=== PATIENT | male | born 1940 | race Caucasian/White ===

== ENCOUNTER 2023-03-14 12:40 | Inpatient (IN) | payer MEDICARE, BC ==
[2023-03-14] MEDS ORDERED: SODIUM CHLORIDE 0.9% 1,000 ML IV STA ×2 (12:52→14:08)
--- NOTE | 2023-03-14 12:53 | ED ---
Recheck HPI - General Stated Complaint: sepsis Time Seen by Provider: 03/14/23 12:45 Source: RN notes reviewed, old records reviewed Mode of arrival: EMS Limitations: no limitations - History of Present Illness Initial Comments: This is a 83-year-old male to the ER for evaluation presented for an weakness and exception in transfer for pneumonia and sepsis with low blood pressure. On arrival to this emergency room patient still feels very weak lightheaded with cough and shortness of breath although he states his fever feels improved. Sensation states he was very sick this morning when he woke up and was taken to the hospital. No recent travel history no known significant sick contacts. MD Complaint: abnormal lab (Low blood pressure with pneumonia), needs IV antibiotics -: unknown Returns Today for: Called Because of Abnormal Lab/Test, needs IV antibiotics, persistent/worsening pain related to initial visit Symptoms Since Prior Visit: fever Context: called for abnormal lab result (Low blood pressure) Associated Symptoms: fever, chills, malaise, nausea Treatments Prior to Arrival: other (0) - Related Data Home Medications Medication Instructions Recorded Confirmed Apixaban [Eliquis] 2.5 mg PO BID 03/14/23 03/14/23 Aspirin EC [Ecotrin Low Dose] 81 mg PO DAILY 03/14/23 03/14/23 Atorvastatin [Lipitor] 40 mg PO DAILY 03/14/23 03/14/23 Cetirizine HCl [Zyrtec] 10 mg PO DAILY 03/14/23 03/14/23 DULoxetine HCL [Cymbalta] 30 mg PO DAILY 03/14/23 03/14/23 Magnesium Oxide [Mag-Ox] 400 mg PO DAILY 03/14/23 03/14/23 Melatonin 5 mg PO HS 03/14/23 03/14/23 Multivitamins, Thera [Multivitamin 1 tab PO DAILY 03/14/23 03/14/23 (formulary)] Pantoprazole [Protonix] 40 mg PO DAILY 03/14/23 03/14/23 polyethylene glycoL 3350 [Miralax] 17 gm PO DAILY 03/14/23 03/14/23 rOPINIRole HCL [Requip] 0.25 mg PO BID 03/14/23 03/14/23 Previous Rx's Medication Instructions Recorded Acetaminophen Tab [Tylenol] 650 mg PO Q6HR PRN tab 03/18/23 Metoprolol Tartrate [Lopressor] 12.5 mg PO DAILY #30 tab 03/18/23 Allergies Allergy/AdvReac Type Severity Reaction Status Date / Time No Known Allergies Allergy Verified 03/14/23 15:22 Review of Systems ROS Statement: Those systems with pertinent positive or pertinent negative responses have been documented in the HPI. ROS Other: All systems not noted in ROS Statement are negative. General Exam General appearance: alert, in no apparent distress, anxious Head exam: Present: atraumatic, normocephalic, normal inspection Eye exam: Present: normal appearance, PERRL, EOMI. Absent: scleral icterus, conjunctival injection, periorbital swelling ENT exam: Present: normal exam, mucous membranes moist Neck exam: Present: normal inspection. Absent: tenderness, meningismus, lymphadenopathy Respiratory exam: Present: respiratory distress, wheezes, accessory muscle use, decreased breath sounds, prolonged expiratory. Absent: rales, rhonchi, stridor Cardiovascular Exam: Present: regular rate, normal rhythm, tachycardia, normal heart sounds. Absent: systolic murmur, diastolic murmur, rubs, gallop, clicks GI/Abdominal exam: Present: soft, normal bowel sounds. Absent: distended, tenderness, guarding, rebound, rigid Extremities exam: Present: normal inspection, full ROM, normal capillary refill. Absent: tenderness, pedal edema, joint swelling, calf tenderness Back exam: Present: normal inspection Neurological exam: Present: alert, oriented X3, CN II-XII intact Psychiatric exam: Present: normal affect, normal mood Skin exam: Present: warm, dry, intact, normal color. Absent: rash Course Vital Signs 03/14/23 03/14/23 03/14/23 12:42 13:05 13:49 Temperature 98.3 F Pulse Rate 78 73 74 Respiratory 20 22 Rate Blood Pressure 87/41 97/45 O2 Sat by Pulse 93 L 93 L Oximetry 03/14/23 03/14/23 03/14/23 13:59 14:00 16:27 Temperature Pulse Rate 74 75 73 Respiratory 20 Rate Blood Pressure 96/60 O2 Sat by Pulse 95 Oximetry 03/14/23 03/14/23 03/14/23 16:38 17:00 18:35 Temperature 98.8 F Pulse Rate 73 74 74 Respiratory 20 20 Rate Blood Pressure 130/70 117/62 O2 Sat by Pulse 97 97 Oximetry 03/14/23 03/14/23 03/14/23 19:00 20:15 20:24 Temperature Pulse Rate 74 71 77 Respiratory 21 Rate Blood Pressure 119/58 O2 Sat by Pulse 95 Oximetry 03/14/23 03/14/23 03/15/23 21:00 23:00 00:00 Temperature Pulse Rate 80 64 68 Respiratory 20 22 20 Rate Blood Pressure 111/62 91/49 98/53 O2 Sat by Pulse 95 94 L 94 L Oximetry 03/15/23 03/15/23 03/15/23 01:00 02:00 03:00 Temperature Pulse Rate 63 65 70 Respiratory 21 20 21 Rate Blood Pressure 100/58 101/55 105/57 O2 Sat by Pulse 98 93 L 91 L Oximetry 03/15/23 03/15/23 03/15/23 04:00 05:00 06:00 Temperature Pulse Rate 70 70 64 Respiratory 18 13 12 Rate Blood Pressure 97/48 104/57 104/75 O2 Sat by Pulse 87 L 95 98 Oximetry 03/15/23 03/15/23 07:00 07:46 Temperature 98.2 F Pulse Rate 68 65 Respiratory 22 Rate Blood Pressure 117/63 O2 Sat by Pulse 97 Oximetry - Reevaluation(s) Reevaluation #1: 03/14/23 14:59 Medical record is reviewed Transfer records reviewed Reevaluation #2: 03/14/23 14:59 Patient states she still feels very weak here in the ER shortness of breath is improving Reevaluation #3: 03/14/23 14:59 Patient informed results questions answered Reevaluation #4: 03/14/23 13:35 Was pt. sent in by a medical professional or institution? @ -no Did you speak to anyone other than the patient for history? @ -no Did you review nursing and triage notes? @ -agree Were old charts reviewed? @ -yes Differential Diagnosis? @ -prior EKG interpreted by me (3pts min.)? @ -yes X-rays interpreted by me (1pt min.)? @ -yes CT interpreted by me (1pt min.)? @ -yes U/S interpreted by me (1pt. min.)? @ -no What testing was considered but not performed? (CT, X-rays, U/S, labs)? Why? @ -no What meds were considered but not given? Why? @ -no Did you discuss the management of the patient with other professionals? @ -no Did you reconcile home meds? @ -no Was smoking cessation discussed for >3mins.? @ -no Was critical care preformed (if so, how long)? @ -no Were there social determinants of health that impacted care today? How? (Homelessness, low income, unemployed, alcoholism, drug addiction, transportation, low edu. Level, literacy, decrease access to med. care, fci, rehab)? @ -no Was there de-escalation of care discussed even if they declined? (Discuss DNR or withdrawal of care, Hospice)? @ -no What co-morbidities impacted this encounter? (DM, HTN, Smoking, COPD, CAD, Cancer, CVA, Hep., AIDS, mental health diagnosis, sleep apnea, morbid obesity)? @ -none Was patient admitted / discharged? @ -83 male to the emergency department for evaluation as a transfer patient. Patient is accepted in transfer from outside facility for pneumonia, soft blood pressures originally which are improving with hydration, patient is continued on antibiotics and will be admitted for continued supportive care Undiagnosed new problem with uncertain prognosis? @ -no Drug Therapy requiring intensive monitoring for toxicity (Heparin, Nitro, In sulin, Cardizem)? @ -no Were any procedures done? @ -no Diagnosis/symptom? @ -CHF, pneumonia, hypoxia Acute, or Chronic, or Acute on Chronic? @ -acute Uncomplicated (without systemic symptoms) or Complicated (systemic symptoms)? @ -complicated Side effects of treatment? @ -no Exacerbation, Progression, or Severe Exacerbation] @ -no Poses a threat to life or bodily function? @ -yes with distress respiratory and hypoxia Reevaluation #5: 03/14/23 13:35 Differential Fever: Pneumonia, viral URI, endocarditis, myocarditis, pericarditis, otitis, sinusitis, peritonsillar Abscess, retropharyngeal Abscess, epiglottitis, peritonitis, appendicitis, Sylwia cystitis, diverticulitis, hepatitis, colitis, UTI, PID, TOA, pyelonephritis, prostatitis, epididymitis, meningitis, encephalitis, pulmonary embolism, CVA, thyroid storm, pancreatitis, adrenal cr fela, cavernous sinus thrombosis, this is not meant to be an all-inclusive list. Differential Dyspnea: Coronary syndrome, arrhythmia, tamponade, asthma, COPD, pulmonary embolism, pneumonia, pneumothorax, pulmonary effusion, anaphylaxis, diabetic ketoacidosis, flailed chest, pulmonary contusion, diaphragmatic rupture, anemia, neuromuscular, this is not meant to be an all-inclusive list. - Consultations Consultation #1: Spoke with [facility] who agrees to admit the patient Procedures - Sepsis Sepsis Focused Exam #1 Time Sepsis Criteria Met: 13:00 Sepsis Focused Exam Date: 03/14/23 Sepsis Focused Exam Time: 14:58 Sepsis Focused Exam Complete: Yes Vital Signs & RN Notes Reviewed: Yes Capillary Refill: < 2 Seconds: Fingers, Toes Peripheral Pulses: Normal: Radial (R), Radial (L), Posterior Tibialis (R), Posterior Tibialis (L), Dorsalis Pedis (R), Dorsalis Pedis (L) Skin Color: Normal for Patient Respiratory Exam: respiratory distress, rhonchi Cardiovascular Exam: regular rate Medical Decision Making - Medical Decision Making 83 male to the emergency department for evaluation as a transfer patient. Patient is accepted in transfer from outside facility for pneumonia, soft blood pressures originally which are improving with hydration, patient is continued on antibiotics and will be admitted for continued supportive care - Lab Data Result diagrams: 03/17/23 07:19 03/18/23 07:40 Lab Results 03/14/23 03/14/23 03/14/23 Range/Units 12:45 12:45 12:45 WBC 20.8 H (3.8-10.6) k/uL RBC 4.35 (4.30-5.90) m/uL Hgb 13.3 (13.0-17.5) gm/dL Hct 40.9 (39.0-53.0) % MCV 94.0 (80.0-100.0) fL MCH 30.5 (25.0-35.0) pg MCHC 32.4 (31.0-37.0) g/dL RDW 14.3 (11.5-15.5) % Plt Count 145 L (150-450) k/uL MPV 9.4 Neutrophils % 95 % Lymphocytes % 3 % Monocytes % 2 % Eosinophils % 0 % Basophils % 0 % Neutrophils # 19.7 H (1.3-7.7) k/uL Lymphocytes # 0.6 L (1.0-4.8) k/uL Monocytes # 0.4 (0-1.0) k/uL Eosinophils # 0.1 (0-0.7) k/uL Basophils # 0.0 (0-0.2) k/uL PT 11.0 (9.0-12.0) sec INR 1.0 (<1.2) APTT 25.2 (22.0-30.0) sec D-Dimer 1.05 H (<0.60) mg/L FEU Sodium 140 (137-145) mmol/L Potassium 3.5 (3.5-5.1) mmol/L Chloride 105 (98-107) mmol/L Carbon Dioxide 27 (22-30) mmol/L Anion Gap 8 mmol/L BUN 28 H (9-20) mg/dL Creatinine 1.60 H (0.66-1.25) mg/dL Est GFR (CKD-EPI)AfAm 45 (>60 ml/min/1.73 sqM) Est GFR (CKD-EPI)NonAf 39 (>60 ml/min/1.73 sqM) Glucose 103 H (74-99) mg/dL Plasma Lactic Acid Claudio (0.7-2.0) mmol/L Calcium 7.5 L (8.4-10.2) mg/dL Phosphorus 3.0 (2.5-4.5) mg/dL Magnesium 1.8 (1.6-2.3) mg/dL Total Bilirubin 1.6 H (0.2-1.3) mg/dL AST 32 (17-59) U/L ALT 27 (4-49) U/L Alkaline Phosphatase 118 (38-126) U/L Troponin I (0.000-0.034) ng/mL NT-Pro-B Natriuret Pep pg/mL Total Protein 5.5 L (6.3-8.2) g/dL Albumin 2.9 L (3.5-5.0) g/dL 03/14/23 03/14/23 03/14/23 Range/Units 12:45 12:45 12:45 WBC (3.8-10.6) k/uL RBC (4.30-5.90) m/uL Hgb (13.0-17.5) gm/dL Hct (39.0-53.0) % MCV (80.0-100.0) fL MCH (25.0-35.0) pg MCHC (31.0-37.0) g/dL RDW (11.5-15.5) % Plt Count (150-450) k/uL MPV Neutrophils % % Lymphocytes % % Monocytes % % Eosinophils % % Basophils % % Neutrophils # (1.3-7.7) k/uL Lymphocytes # (1.0-4.8) k/uL Monocytes # (0-1.0) k/uL Eosinophils # (0-0.7) k/uL Basophils # (0-0.2) k/uL PT (9.0-12.0) sec INR (<1.2) APTT (22.0-30.0) sec D-Dimer (<0.60) mg/L FEU Sodium (137-145) mmol/L Potassium (3.5-5.1) mmol/L Chloride (98-107) mmol/L Carbon Dioxide (22-30) mmol/L Anion Gap mmol/L BUN (9-20) mg/dL Creatinine (0.66-1.25) mg/dL Est GFR (CKD-EPI)AfAm (>60 ml/min/1.73 sqM) Est GFR (CKD-EPI)NonAf (>60 ml/min/1.73 sqM) Glucose (74-99) mg/dL Plasma Lactic Acid Claudio 1.5 (0.7-2.0) mmol/L Calcium (8.4-10.2) mg/dL Phosphorus (2.5-4.5) mg/dL Magnesium (1.6-2.3) mg/dL Total Bilirubin (0.2-1.3) mg/dL AST (17-59) U/L ALT (4-49) U/L Alkaline Phosphatase (38-126) U/L Troponin I 0.992 H* (0.000-0.034) ng/mL NT-Pro-B Natriuret Pep 1750 pg/mL Total Protein (6.3-8.2) g/dL Albumin (3.5-5.0) g/dL - EKG Data -: EKG Interpreted by Me (EKG is sinus 70 7 PM 175 QRS 16 QTc 470) - Radiology Data Radiology results: report reviewed (Chest x-ray showing mild developing CHF with pneumonia, CT is showing the same no PE), image reviewed Critical Care Time Critical Care Time: Yes Total Critical Care Time: 31 Disposition Clinical Impression: Dehydration, Sepsis, Weakness, Fever, Pneumonia, Hypoxia, Elevated troponin Disposition: ADMITTED IP TO THIS HOSP Condition: Fair Is patient prescribed a controlled substance at d/c from ED?: No Time of Disposition: 15:00
[2023-03-14 13:12] LABS: Basophils % (A) 0 %; Eosinophils # (A) 0.1 k/uL (0-0.7); Eosinophils % (A) 0 %; HCT 40.9 % (39.0-53.0); HGB 13.3 gm/dL (13.0-17.5); Lymphocytes # (A) 0.6 k/uL (1.0-4.8); Lymphocytes % (A) 3 %; MCH 30.5 pg (25.0-35.0); MCHC 32.4 g/dL (31.0-37.0); Mean Platelet Volume 9.4; Monocytes # (A) 0.4 k/uL (0-1.0); Monocytes % (A) 2 %; Neutrophils # (A) 19.7 k/uL (1.3-7.7); Neutrophils % (A) 95 %; Platelet Count 145 k/uL (150-450); RBC 4.35 m/uL (4.30-5.90); RDW 14.3 % (11.5-15.5); WBC 20.8 k/uL (3.8-10.6)
[2023-03-14 13:24] LABS: Partial Thromboplastin Time 25.2 sec (22.0-30.0)
[2023-03-14] MEDS ORDERED: IPRATROPIUM-ALBUTEROL 3 ML NEB INHALATION STA (13:29)
[2023-03-14 13:32] LABS: ALT 27 U/L (4-49); AST 32 U/L (17-59); African American GFR (CKD) 45 (>60 ml/min/1.73 sqM); Albumin 2.9 g/dL (3.5-5.0); Alkaline Phosphatase 118 U/L (38-126); Anion Gap 8 mmol/L; Blood Urea Nitrogen 28 mg/dL (9-20); Calcium 7.5 mg/dL (8.4-10.2); Carbon Dioxide 27 mmol/L (22-30); Chloride 105 mmol/L (98-107); Glucose 103 mg/dL (74-99); Magnesium 1.8 mg/dL (1.6-2.3); Non-African American GFR(CKD) 39 (>60 ml/min/1.73 sqM); Potassium 3.5 mmol/L (3.5-5.1); Sodium 140 mmol/L (137-145); Total Bilirubin 1.6 mg/dL (0.2-1.3); Total Protein 5.5 g/dL (6.3-8.2)
--- NOTE | 2023-03-14 14:00 | XR ---
EXAMINATION TYPE: XR chest 1V portable DATE OF EXAM: 03/14/2023 Comparison: None Clinical History: 83-year-old male with CHF Findings: Heart upper limits of normal in size. Median sternotomy wires and post-CABG clips. Low lung lungs and crowded vascular markings. Interstitial prominence. Patchy left basilar opacity, possible smaller le jason. Impression: 1. Borderline cardiomegaly. Hypoventilatory changes. Interstitial prominence consistent with mild pul monary vascular congestion. 2. There may be a small left effusion with adjacent atelectasis and/or consolidation.
[2023-03-14] MEDS ORDERED: HEPARIN SODIUM 1,000 UN/ML (10ML VL) IV ONE (14:08)
[2023-03-14] MEDS ORDERED: HEPARIN SODIUM 1,000 UN/ML (10ML VL) IV PRN (14:08)
[2023-03-14] MEDS ORDERED: HEPARIN SOD,PORK IN 0.45% NACL 25,000 UNIT in 0.45% NACL 1 250ML.BAG IV SCH (14:15)
[2023-03-14] MEDS ORDERED: ACETAMINOPHEN TAB 325 MG TAB PO PRN (14:51)
[2023-03-14] MEDS ORDERED: NALOXONE 0.4 MG/ML 1 ML VIAL IV PRN (14:51)
[2023-03-14] MEDS ORDERED: IBUPROFEN 400 MG TAB PO PRN (14:51)
[2023-03-14] MEDS ORDERED: ONDANSETRON 4 MG/2 ML VIAL IVP PRN (14:51)
[2023-03-14] MEDS: SODIUM CHLORIDE 0.9% 1,000 ML IV SCH (15:54)
--- NOTE | 2023-03-14 16:05 | CT ---
EXAMINATION TYPE: CT angio chest DATE OF EXAM: 03/14/2023 COMPARISON: Radiograph same day HISTORY: 83 year-old male shortness of breath, ELEVATED D-DIMER TECHNIQUE: Contiguous axial scanning of the chest performed with IV Contrast, patient injected with 8 0 mL of Isovue 370. Coronal/sagittal MIP reconstructions performed. CT DLP: 528.4 mGycm Automated exposure control for dose reduction was used. FINDINGS: Heart is mildly enlarged without pericardial effusion. Three-vessel coronary artery calcifications ar e present in remarkable for coronary artery disease. Dilatation of right-sided heart. Median sternotomy wires are present. Ectatic ascending aorta 3.9 cm. Mild atherosclerotic arch calcifications. Conventional arch was a bra nching anatomy. Borderline to mildly enlarged caliber to the main right and left pulmonary arteries up to 2.9 cm each . Satisfactory opacification of the pulmonary arterial system. There is some limitation due to breath ing motion artifact especially involving segmental and more distal arterial branches on the right. Al lowing for this limitation, no definite pulmonary embolus is seen. No thoracic lymphadenopathy by CT size criteria. Extensive dependent atelectasis. Extensive breathing motion artifact. Calcified granuloma medial left base. Otherwise, no nirmala consolidation or pleural effusion. Visualized upper abdomen shows cholecystectomy clips. Atrophic pancreas. Bones: Osseous destructive process. IMPRESSION: 1. EXTENSIVE BREATHING MOTION ARTIFACT ESPECIALLY ON THE RIGHT LIMITING ASSESSMENT FOR PULMONARY INLE T. NO OBVIOUS PULMONARY EMBOLUS IS SEEN. MANY OF THE SEGMENTAL AND MORE DISTAL FRACTURES ON THE RIGHT ARE NONDIAGNOSTIC AND EMBOLI IN THESE LOCATIONS CANNOT BE EXCLUDED ON THE BASIS OF THIS EXAM. 2. EXTENSIVE POSTERIOR OPACITIES AND GROUNDGLASS. SUSPECT EXTENSIVE DEPENDENT AND GENERALIZED ATELECT ASIS. OTHERWISE, NO PLEURAL EFFUSION OR DEFINITE ACUTE PROCESS. 3. Mild cardiomegaly, CAD, and pulmonary arterial hypertension. Correlate for underlying mild CHF.
[2023-03-14] MEDS: IPRATROPIUM-ALBUTEROL 3 ML NEB INHALATION SCH ×3 (16:27→20:14)
[2023-03-14] MEDS ORDERED: PIPERACILLIN-TAZOBACTAM 3.375 GM in SODIUM CHLORIDE 0.9% 100 ML IVPB ONE (18:00)
[2023-03-14] MEDS ORDERED: IPRATROPIUM-ALBUTEROL 3 ML NEB INHALATION PRN (19:35)
[2023-03-15] MEDS ORDERED: PIPERACILLIN-TAZOBACTAM 3.375 GM in SODIUM CHLORIDE 0.9% 100 ML IVPB SCH ×2
[2023-03-15] MEDS: PIPERACILLIN-TAZOBACTAM 3.375 GM in SODIUM CHLORIDE 0.9% 100 ML IVPB SCH ×4 (00:40→23:59)
--- NOTE | 2023-03-15 03:16 | P.CNPUL ---
History of Present Illness Consult date: 03/15/23 Requesting physician: Shalonda Correia Reason for consult: pneumonia Chief complaint: Shortness of breath, nonproductive cough, fever History of present illness: I am seeing this patient in consultation today 03/15/2023 after he was transferred from [facility] yesterday for suspected sepsis. Patient is an 83 -year-old white male with past medical history significant for coronary artery disease status post CABG with subsequent stenting, hyperlipidemia, hypertension, AAA, atrial fibrillation, CVA with left-sided hemiparesis, esophageal strictures, and dysphagia. Patient also had a recent prolonged stay at [facility] for bowel obstruction, but did not require surgical intervention. Patient reports generalized weakness, fever, difficulties urinating including frequency and urgency that started on Wednesday. He did have a fall 1 week ago. UA at outside facility was concerning for UTI. Reportedly had a T-max of 102F. There was also a component of acute kidney injury. No re ported gastrointestinal complaints. He also is reporting some shortness of breath and occasional nonproductive cough. There are concerns about possible aspiration. Denies history of COPD or asthma. Denies sick contacts. Negative for influenza, RSV, COVID-19. Patient is currently sitting up in bed, on 2 L/m nasal cannula, in no acute distress. A follow-up chest x-ray at our facility shows borderline cardiomegaly, and interstitial prominence consistent with mild pulmonary vascular congestion. There was a possible small left pleural effusion with adjacent atelectasis and/or consolidation. A follow-up chest CTA was negative for any large central pulmonary embolism. It did show extensive bi lateral posterior opacities thought to be atelectasis without pleural effusion or obvious focal consolidation. CBC on arrival shows leukocytosis with a WBC count of 21, hemoglobin 13.3, hematocrit 41, platelets 145. BMP shows a sodium 140, potassium 3.5, chloride 105, serum bicarb 27, BUN 28, creatinine 1.6, glucose 103. Troponins are elevated at 0.99, 1.3, and 1.29. NT proBNP was 1750. No IV maintenance fluids infusing. Currently on a combination of azithromycin and Zosyn. Patient is currently afebrile. Appears nontoxic, and vital signs are stable at this time. Review of Systems REVIEW OF SYSTEMS: CONSTITUTIONAL: Denies any recent significant weight loss or weight gain. EYES: Denies change in vision. EARS, NOSE, MOUTH, THROAT: Denies headaches, denies sore throat. CARDIOVASCULAR: Denies chest pain, palpitations or syncopal episodes. Admits chronic left lower extremity swelling. RESPIRATORY: See HPI GASTROINTESTINAL: Denies change in appetite, abdominal pain, nausea and vomiting, or diarrhea GENITOURINARY: Denies hematuria. Admits urinary frequency and urgency. MUSKULOSKELETAL: Denies pain, denies swelling. INTEGUMENTARY: Denies rash, denies eczema. NEUROLOGICAL: Denies recent memory loss, no recent seizure activity. Admits chronic left-sided hemiparesis and facial droop. There is some obvious dysarthria, which is reportedly chronic. PSYCHIATRIC: Denies anxiety, denies depression. HEMATOLOGIC/LYMPHATIC: Denies anemia, denies enlarged lymph node Past Medical History Past Medical History: Atrial Fibrillation, Coronary Artery Disease (CAD), Heart Failure, CVA/TIA, Eye Disorder, Hyperlipidemia, Hypertension, Myocardial Infarction (PA) Additional Past Medical History / Comment(s): dysphagia, cataracts, ulcers, macular degeneration, AAA, History of Any Multi-Drug Resistant Organisms: None Reported Past Surgical History: Adenoidectomy, Cholecystectomy, Heart Catheterization With Stent Additional Past Surgical History / Comment(s): CABG, lumbar discectomy Past Psychological History: No Psychological Hx Reported Smoking Status: Former smoker Past Alcohol Use History: Occasional Past Drug Use History: None Reported Medications and Allergies Home Medications Medication Instructions Recorded Confirmed Type Apixaban [Eliquis] 2.5 mg PO BID 03/14/23 03/14/23 History Aspirin EC [Ecotrin Low Dose] 81 mg PO DAILY 03/14/23 03/14/23 History Atorvastatin [Lipitor] 40 mg PO DAILY 03/14/23 03/14/23 History Cetirizine HCl [Zyrtec] 10 mg PO DAILY 03/14/23 03/14/23 History DULoxetine HCL [Cymbalta] 30 mg PO DAILY 03/14/23 03/14/23 History Fludrocortisone Acetate 0.1 mg PO Q48H 03/14/23 03/14/23 History Furosemide [Lasix] 40 mg PO DAILY 03/14/23 03/14/23 History Magnesium Oxide [Mag-Ox] 400 mg PO DAILY 03/14/23 03/14/23 History Melatonin 5 mg PO HS 03/14/23 03/14/23 History Multivitamins, Thera [Multivitamin 1 tab PO DAILY 03/14/23 03/14/23 History (formulary)] NIFEdipine XL [Procardia XL] 60 mg PO DAILY 03/14/23 03/14/23 History Pantoprazole [Protonix] 40 mg PO DAILY 03/14/23 03/14/23 History Potassium Chloride ER [K-Dur 20] 20 meq PO DAILY 03/14/23 03/14/23 History Sotalol HCl [Sotalol AF] 80 mg PO BID 03/14/23 03/14/23 History polyethylene glycoL 3350 [Miralax] 17 gm PO DAILY 03/14/23 03/14/23 History rOPINIRole HCL [Requip] 0.25 mg PO BID 03/14/23 03/14/23 History Allergies Allergy/AdvReac Type Severity Reaction Status Date / Time No Known Allergies Allergy Verified 03/14/23 15:22 Physical Exam Vitals: Vital Signs Temp Pulse Resp BP Pulse Ox 03/15/23 01:00 63 21 100/58 98 03/15/23 00:00 68 20 98/53 94 L 03/14/23 23:00 64 22 91/49 94 L 03/14/23 21:00 80 20 111/62 95 03/14/23 20:24 77 03/14/23 20:15 71 03/14/23 19:00 74 21 119/58 95 03/14/23 18:35 98.8 F 74 20 117/62 97 03/14/23 17:00 74 20 130/70 97 03/14/23 16:38 73 03/14/23 16:27 73 03/14/23 14:00 75 20 96/60 95 03/14/23 13:59 74 03/14/23 13:49 74 03/14/23 13:05 73 22 97/45 93 L 03/14/23 12:42 98.3 F 78 20 87/41 93 L Intake and Output 03/14/23 03/14/23 03/15/23 14:59 22:59 06:59 Intake Total 1400 Balance 1400 Intake: Intake, IV Titration 1400 Amount Azithromycin 500 mg In 250 Sodium Chloride 0.9% 250 ml @ 250 mls/hr IVPB DAILY [facility] Rx#:[id number] Piperacillin-Tazobactam 3 100 .375 gm In Sodium Chloride 0.9% 100 ml @ 25 mls/hr IVPB Q8HR [facility] Rx# :[id number] Sodium Chloride 0.9% 1, 1000 000 ml @ 999 mls/hr IV . Q1H1M [facility] Rx#:[id number] cefTRIAXone 2 gm In 50 Sodium Chloride 0.9% 50 ml @ 100 mls/hr IVPB Q24HR [facility] Rx#:[id number] Other: Weight 89.358 kg GENERAL EXAM: Alert, 83-year-old white male appearing stated age, comfortable in no apparent distress. HEAD: Normocephalic and atraumatic EYES: Normal reaction of pupils, equal size. NOSE: Clear with pink turbinates. THROAT: No erythema or exudates. NECK: No masses, no JVD. CHEST: No chest wall deformity. Remote appearing sternotomy scar LUNGS: Equal air entry with left basilar inspiratory crackles. No wheeze, rhonchi or focal dullness. On 2 L/m nasal cannula. No conversational dyspnea or accessory muscle use.. CVS: S1 and S2 normal with no audible murmur, regular rhythm. No extra heart sounds ABDOMEN: No hepatosplenomegaly, active bowel sounds, no guarding or rigidity. SPINE: No scoliosis or deformity. No CVA tenderness SKIN: No rashes CENTRAL NERVOUS SYSTEM: There is clear left-sided hemiparesis. Right upper and lower extremity strength 5/5. Left upper extremity strength 3/5. Left lower extremity strength 2/5. There is also left-sided facial droop and dysarthria. EXTREMITIES: There is lower extremity edema greater in the left leg. No clubbing, or cyanosis. Peripheral pulses are intact. Results - Laboratory Findings CBC and BMP: 03/14/23 12:45 03/14/23 12:45 PT/INR, D-dimer PT 11.0 sec (9.0-12.0) 03/14/23 12:45 INR 1.0 (<1.2) 03/14/23 12:45 D-Dimer 1.05 mg/L FEU (<0.60) H 03/14/23 12:45 Abnormal lab findings: Abnormal Labs 03/14/23 03/14/23 03/14/23 12:45 12:45 12:45 WBC 20.8 H Plt Count 145 L Neutrophils # 19.7 H Lymphocytes # 0.6 L D-Dimer 1.05 H BUN 28 H Creatinine 1.60 H Glucose 103 H Calcium 7.5 L Total Bilirubin 1.6 H Troponin I Total Protein 5.5 L Albumin 2.9 L 03/14/23 03/14/23 03/14/23 12:45 15:42 18:38 WBC Plt Count Neutrophils # Lymphocytes # D-Dimer BUN Creatinine Glucose Calcium Total Bilirubin Troponin I 0.992 H* 1.300 H* 1.290 H* Total Protein Albumin - Diagnostic Findings Chest x-ray: image reviewed CT scan - chest: image reviewed Assessment and Plan Assessment: Acute hypoxemic respiratory failure, on 2 L/m nasal cannula. Chest CTA show extensive bilateral posterior opacities thought to be atelectasis without pleural effusion or obvious focal consolidation. No obvious evidence of pneumonia. There was borderline cardiomegaly. NT proBNP not significantly elevated for age. Negative for influenza, RSV, COVID-19. Suspected UTI Leukocytosis, secondary to above Acute kidney injury, creatinine 1.6 Elevated troponins, likely supply/demand mismatch Left lower extremity edema Elevated d-dimer, chest CTA shows no evidence of large central pulmonary embolism. Ascending aortic aneurysm, measuring 3.9 cm on chest CTA Coronary artery disease, status post CABG with subsequent PCI and stenting Hyperlipidemia Benign essential hypertension Obesity, BMI of 31 Remote history of CVA with residual left-sided hemiparesis History of atrial fibrillation, currently in normal sinus rhythm. Anticoagulated on Eliquis History of bowel obstruction History of esophageal strictures and dysphagia Remote ex-smoker Plan: Patient's medications, labs, imaging reviewed Continue supplemental oxygen Encourage Incentive spirometer Continue bronchodilators Continue empiric antibiotics Check procalcitonin level Obtain urinalysis with reflex culture Blood cultures pending Echocardiogram is pending Obtain venous Doppler of left lower extremity Consult speech for swallow evaluation We will continue to follow I have personally seen and examined the patient, performed the documentation and the assessment and plan as written. Number of minutes spent on the visit:20 Time with Patient: Greater than 30
--- NOTE | 2023-03-15 05:39 | HP ---
HISTORY AND PHYSICAL CHIEF COMPLAINT: Cough, weakness, and pneumonia. HISTORY OF PRESENT ILLNESS: This 83-year-old gentleman with a past medical history of multiple medical problems including atrial fibrillation, CHF, history of CVA, TIA, being followed by Dr. Quick in the outpatient setting, noted to have increasing weakness, and the patient went to [facility] and subsequently referred to [facility], and evaluation showed possibly bibasilar pneumonia, left more than the right, and the patient also had elevated troponin indicating acute possible acute [id number]- elevation myocardial infarction. The patient was admitted for evaluation and treatment. The patient was also found to be dehydrated. There is no history of fever, rigors, chills. PAST MEDICAL HISTORY: Reviewed include atrial fibrillation, CHF. Rest of history and rest of chart are also reviewed. ALLERGIES: None. HOME MEDICATIONS: Reviewed, sotalol, dose and rest of medications reviewed. REVIEW OF SYSTEMS: Fourteen-point review of systems negative except as mentioned. PHYSICAL EXAM: VITAL SIGNS: Pulse is 75, blood pressure 90/60, respirations 20. HEENT: Conjunctivae normal. NECK: No jugular venous distention. CARDIOVASCULAR: S1, S2. RESPIRATIONS: Bilateral scattered rhonchi. No crackles. ABDOMEN: Soft, nontender. LEGS: No edema. NERVOUS SYSTEM: No focal deficits. SKIN: No ulcer, rash, bleeding. JOINTS: No active deforming arthropathy. LABS: WBC is 10.8. ASSESSMENT: 1. Bibasilar pneumonia with possible sepsis, present on admission. 2. Troponin 1.60 with acute ivo-VZ-[id number]-elevation myocardial infarction. 3. Acute renal failure. 4. History of atrial fibrillation. 5. History of congestive heart failure. 6. History of hypertension. 7. History of hyperlipidemia. 8. Multiple complex medical issues. RECOMMENDATIONS AND DISCUSSION: This 83-year-old gentleman presented with multiple complex medical issues, we will monitor the patient closely. Initiate broad-spectrum IV antibiotics; Cardiology, Infectious Disease, and Pulmonary consultations. Prognosis, extremely guarded because of multiple complex medical issues. See orders for further details. I would recommend cultures and empirically treat with Zosyn. COVID testing also will be requested. See orders for further details. Discussed with family at length. Home medications will be continued once they are confirmed. MMODL / IJN: [id number] /
[2023-03-15] MEDS: PANTOPRAZOLE 40 MG TABLET PO SCH (07:41)
[2023-03-15] MEDS: IPRATROPIUM-ALBUTEROL 3 ML NEB INHALATION SCH ×4 (08:27→20:04)
--- NOTE | 2023-03-15 08:33 | US ---
EXAMINATION TYPE: US venous doppler duplex LE LT DATE OF EXAM: 03/15/2023 7:22 AM COMPARISON: NONE CLINICAL INDICATION: Male, 83 years old with history of rule out DVT; Swelling. No hx of DVT. Patient is on eliquis. SIDE PERFORMED: Left TECHNIQUE: The lower extremity deep venous system is examined utilizing real time linear array sonog deep with graded compression, doppler sonography and color-flow sonography. VESSELS IMAGED: Common Femoral Vein Deep Femoral Vein Greater Saphenous Vein * Femoral Vein Popliteal Vein Small Saphenous Vein * Proximal Calf Veins (* superficial vessels) Left Leg: No evidence of DVT. IMPRESSION:
[2023-03-15] MEDS ORDERED: AZITHROMYCIN 500 MG in SODIUM CHLORIDE 0.9% 250 ML IVPB SCH (09:00)
[2023-03-15] MEDS: ATORVASTATIN 40 MG TAB PO SCH (09:02)
[2023-03-15] MEDS: polyethylene glycoL 3350 17 GM POWD.PACK PO SCH (09:02)
[2023-03-15] MEDS: APIXABAN 2.5 MG TABLET PO SCH ×2 (09:02→19:56)
[2023-03-15] MEDS: ASPIRIN 81 MG PO SCH (09:02)
[2023-03-15 09:24] LABS: Basophils % (A) 0 %; Eosinophils # (A) 0.1 k/uL (0-0.7); Eosinophils % (A) 1 %; HCT 39.9 % (39.0-53.0); HGB 12.7 gm/dL (13.0-17.5); Lymphocytes # (A) 0.8 k/uL (1.0-4.8); Lymphocytes % (A) 4 %; MCHC 31.9 g/dL (31.0-37.0); MCV 93.9 fL (80.0-100.0); Monocytes # (A) 0.7 k/uL (0-1.0); Monocytes % (A) 4 %; Neutrophils # (A) 16.8 k/uL (1.3-7.7); Neutrophils % (A) 90 %; Platelet Count 137 k/uL (150-450); RBC 4.25 m/uL (4.30-5.90); RDW 14.4 % (11.5-15.5); WBC 18.7 k/uL (3.8-10.6)
[2023-03-15 09:52] LABS: ALT 26 U/L (4-49); AST 29 U/L (17-59); African American GFR (CKD) 50 (>60 ml/min/1.73 sqM); Albumin 2.9 g/dL (3.5-5.0); Alkaline Phosphatase 115 U/L (38-126); Anion Gap 8 mmol/L; Blood Urea Nitrogen 30 mg/dL (9-20); Carbon Dioxide 26 mmol/L (22-30); Chloride 106 mmol/L (98-107); Glucose 70 mg/dL (74-99); Magnesium 2.1 mg/dL (1.6-2.3); Non-African American GFR(CKD) 43 (>60 ml/min/1.73 sqM); Phosphorus 3.3 mg/dL (2.5-4.5); Potassium 3.7 mmol/L (3.5-5.1); Sodium 140 mmol/L (137-145); Total Bilirubin 1.2 mg/dL (0.2-1.3); Total Protein 5.6 g/dL (6.3-8.2)
[2023-03-15] MEDS: SODIUM CHLORIDE 0.9% 1,000 ML IV SCH (11:57)
--- NOTE | 2023-03-15 19:26 | P.CRDCN ---
History of Present Illness Consult date: 03/15/23 Consult reason: congestive heart failure History of present illness: History of present illness: This is an 83-year-old male patient with past medical history of coronary artery disease status post CABG in 1988 the [facility], status post multiple stents,paroxysmal atrial fibrillation on eliquis, hypertension, orthostatic hypotension, hyperlipidemia, history of CVA with left-sided weakness. Patient follows with a platform attendant in the [facility].Patient states that he developed a fever on Wednesday as well as frequency of urination. By the evening he was feeling improvement about his symptoms had resolved. Wednesday he woke up and he couldn't get out of bed due to weakness, feeling tired. He still felt that he could not even walk. He was transported by ambulance to [facility] he was evaluated and subsequently transferred to [facility]. EKG sinus rhythm Chest x-ray:borderline cardiomegaly. Hypoventilatory changes. Interstitial prominence consistent with mild pulmonary vascular congestion. Small left effusion with adjacent atelectasis and/or consolidation. CTA of the chest revealed extensive breathing motion artifact. No obvious pulmonary embolus, and many of the segmental and more distal fractures on the right are nondiagnostic and emboli cannot be excluded. Extensive posterior opacities and groundglass suspect extensive dependent and generalized atelectasis. No pleural effusions or definite acute process. Mild cardiomegaly, CAD, pulmonary artery hypertension. Correlate for underlying mild CHF. WBC initially 20.8 now 18.7, hemoglobin 12.7, platelet count 137. INR 1.0. D- dimer 1.05. Electrolytes normal, BUN 30 creatinine 1.46. Troponins 0.992, 1.3, 1.29. Pro-calcitonin 23.9. Influenza A, influenza B, RSV, Covid 19 not detected. Home cardiac medications: Eliquis 2.5 mg twice daily, aspirin 81 mg daily, Lipitor 40 mg daily, Florinef 0.1 mg every 48 hours, Lasix 40 mg daily, magnesium oxide 400 mg daily, Procardia XL 60 milligrams daily, potassium chloride 20 mEq daily, sotalol 80 mg twice daily. Echocardiogram 2020performed at [facility] revealed normal EF 55-60%, aortic sclerosis, mild AR, moderate left ventricular hypertrophy, right ventricular is mildly dilated, grade 2 diastolic dysfunction, probably mildly enlarged. Holter monitor 2017 normal Stress test 2017 small area of apical ischemia with EF of 52%. Cardiac catheterization 2012 chronically occluded CABG 20. Patent MELENDEZ to LAD with 100% chronic total occlusion of the mid LAD beyond the graft insertion site, Patent stent in the proximal MELENDEZ to LAD, patent stent in the left main into ramus. Review Of Systems: At the time of my evaluation: Constitutional: reported fever, no chills. + weakness, + fatigue. EENT: No headache. No dizziness. Lungs: No shortness of breath, cough, no sputum production. No wheezing. Cardiovascular: No chest pain, no lower extremity edema. No palpitations. No paroxysmal nocturnal dyspnea. No orthopnea. No lightheadedness or dizziness. No syncopal episodes. Abdominal: No abdominal pain. No nausea, vomiting. No diarrhea. No constipation. No bloody or tarry stools. Genitourinary: No dysuria.. No urinary retention. Musculoskeletal: No myalgias. No muscle weakness, no frequent falls. No back pain. No neck pain. Integumentary: No wounds. No rash. No unusual bruising. Neurologic: No aphasia. No facial droop. No change in mentation. No head injury. No headache. Physical examination: Gen: This is an 83-year-old male resting in bed and appears comfortable. No acute distress. VS: reviewed HEENT: Head is atraumatic, normocephalic. Pupils equal, round. Sclerae is anicteric. NECK: Supple. No JVD. LUNGS: Clear to auscultation. No wheezes or rhonchi. No intercostal retractions. HEART: Regular rate and rhythm. ABDOMEN: Soft No tenderness. EXTREMITIES: 2+ pedal edema. No calf tenderness. NEUROLOGICAL: Patient is awake, alert and oriented x3. Assessment: NSTEMI Sepsis secondary to UTI, possible pneumonia less likely CAD s/p CABG AFib, paroxysmal HTN HLD CVA Plan: Continue patient's home medications Add low dose BB Lopressor 12.5 mg daily Obtain 2-D echocardiogram and Doppler study to assess cardiac structure and function Continue treatment for sepsis Further recommendations to follow based upon clinical course Thank you kindly for this consultation. Nurse practitioner note has been reviewed, I agree with documented findings and plan of care. Patient was seen and examined. Past Medical History Past Medical History: Atrial Fibrillation, Coronary Artery Disease (CAD), Heart Failure, CVA/TIA, Eye Disorder, Hyperlipidemia, Hypertension, Myocardial Infarction ([place]) Additional Past Medical History / Comment(s): dysphagia, cataracts, ulcers, macular degeneration, AAA, Last Myocardial Infarction Date:: 1999 History of Any Multi-Drug Resistant Organisms: None Reported Past Surgical History: Adenoidectomy, Cholecystectomy, Heart Catheterization With Stent Additional Past Surgical History / Comment(s): CABG, lumbar discectomy Date of Last Stent Placement:: 1999 Past Psychological History: No Psychological Hx Reported Smoking Status: Former smoker Past Alcohol Use History: None Reported Past Drug Use History: None Reported Medications and Allergies Home Medications Medication Instructions Recorded Confirmed Type Apixaban [Eliquis] 2.5 mg PO BID 03/14/23 03/14/23 History Aspirin EC [Ecotrin Low Dose] 81 mg PO DAILY 03/14/23 03/14/23 History Atorvastatin [Lipitor] 40 mg PO DAILY 03/14/23 03/14/23 History Cetirizine HCl [Zyrtec] 10 mg PO DAILY 03/14/23 03/14/23 History DULoxetine HCL [Cymbalta] 30 mg PO DAILY 03/14/23 03/14/23 History Fludrocortisone Acetate 0.1 mg PO Q48H 03/14/23 03/14/23 History Furosemide [Lasix] 40 mg PO DAILY 03/14/23 03/14/23 History Magnesium Oxide [Mag-Ox] 400 mg PO DAILY 03/14/23 03/14/23 History Melatonin 5 mg PO HS 03/14/23 03/14/23 History Multivitamins, Thera [Multivitamin 1 tab PO DAILY 03/14/23 03/14/23 History (formulary)] NIFEdipine XL [Procardia XL] 60 mg PO DAILY 03/14/23 03/14/23 History Pantoprazole [Protonix] 40 mg PO DAILY 03/14/23 03/14/23 History Potassium Chloride ER [K-Dur 20] 20 meq PO DAILY 03/14/23 03/14/23 History Sotalol HCl [Sotalol AF] 80 mg PO BID 03/14/23 03/14/23 History polyethylene glycoL 3350 [Miralax] 17 gm PO DAILY 03/14/23 03/14/23 History rOPINIRole HCL [Requip] 0.25 mg PO BID 03/14/23 03/14/23 History Allergies Allergy/AdvReac Type Severity Reaction Status Date / Time No Known Allergies Allergy Verified 03/14/23 15:22 Physical Exam Vitals: Vital Signs Temp Pulse Pulse Resp BP BP Pulse Ox 03/15/23 12:23 80 03/15/23 12:13 80 03/15/23 12:00 98.3 F 67 20 103/57 98 03/15/23 08:41 76 03/15/23 08:28 70 98 03/15/23 08:25 98.1 F 72 20 125/66 98 03/15/23 07:46 98.2 F 65 03/15/23 07:00 68 22 117/63 97 03/15/23 06:00 64 12 104/75 98 03/15/23 05:00 70 13 104/57 95 03/15/23 04:00 70 18 97/48 87 L 03/15/23 03:00 70 21 105/57 91 L 03/15/23 02:00 65 20 101/55 93 L 03/15/23 01:00 63 21 100/58 98 03/15/23 00:00 68 20 98/53 94 L 03/14/23 23:00 64 22 91/49 94 L 03/14/23 21:00 80 20 111/62 95 03/14/23 20:24 77 03/14/23 20:15 71 03/14/23 19:00 74 21 119/58 95 03/14/23 18:35 98.8 F 74 20 117/62 97 03/14/23 17:00 74 20 130/70 97 03/14/23 16:38 73 03/14/23 16:27 73 Intake and Output 03/14/23 03/15/23 03/15/23 22:59 06:59 14:59 Intake Total 1400 454 Balance 1400 454 Intake: Intake, IV Titration 1400 100 Amount Azithromycin 500 mg In 250 Sodium Chloride 0.9% 250 ml @ 250 mls/hr IVPB DAILY [facility] Rx#:[id number] Piperacillin-Tazobactam 3 100 100 .375 gm In Sodium Chloride 0.9% 100 ml @ 25 mls/hr IVPB Q8HR [facility] Rx# :[id number] Sodium Chloride 0.9% 1, 1000 000 ml @ 999 mls/hr IV . Q1H1M [facility] Rx#:[id number] cefTRIAXone 2 gm In 50 Sodium Chloride 0.9% 50 ml @ 100 mls/hr IVPB Q24HR [facility] Rx#:[id number] Oral 354 Other: Weight 89.358 kg Results 03/16/23 07:15 03/16/23 07:15 Cardiac Enzymes 03/14/23 03/14/23 03/15/23 Range/Units 15:42 18:38 08:50 AST 29 (17-59) U/L Troponin I 1.300 H* 1.290 H* (0.000-0.034) ng/mL CBC 03/15/23 Range/Units 08:50 WBC 18.7 H (3.8-10.6) k/uL RBC 4.25 L (4.30-5.90) m/uL Hgb 12.7 L (13.0-17.5) gm/dL Hct 39.9 (39.0-53.0) % Plt Count 137 L (150-450) k/uL Comprehensive Metabolic Panel 03/15/23 Range/Units 08:50 Sodium 140 (137-145) mmol/L Potassium 3.7 (3.5-5.1) mmol/L Chloride 106 (98-107) mmol/L Carbon Dioxide 26 (22-30) mmol/L BUN 30 H (9-20) mg/dL Creatinine 1.46 H (0.66-1.25) mg/dL Glucose 70 L (74-99) mg/dL Calcium 8.0 L (8.4-10.2) mg/dL AST 29 (17-59) U/L ALT 26 (4-49) U/L Alkaline Phosphatase 115 (38-126) U/L Total Protein 5.6 L (6.3-8.2) g/dL Albumin 2.9 L (3.5-5.0) g/dL Current Medications Generic Name Dose Route Start Last Admin Trade Name Freq PRN Reason Stop Dose Admin Acetaminophen 650 mg 03/14/23 14:51 Acetaminophen Tab 325 Mg Tab PO Q6HR PRN Mild Pain or Fever > 100.5 Albuterol/Ipratropium 3 ml 03/14/23 20:00 03/15/23 12:13 Ipratropium-Albuterol 3 Ml Neb INHALATION 3 ml RT-QID [facility] Administration Albuterol/Ipratropium 3 ml 03/14/23 19:35 Ipratropium-Albuterol 3 Ml Neb INHALATION RT-Q2H PRN Shortness Of Breath Or Wheezing Apixaban 2.5 mg 03/15/23 09:00 03/15/23 09:02 Apixaban 2.5 Mg Tablet PO 2.5 mg BID [facility] Administration Protocol Aspirin 81 mg 03/15/23 09:00 03/15/23 09:02 Aspirin 81 Mg PO 81 mg DAILY [facility] Administration Atorvastatin Calcium 40 mg 03/15/23 09:00 03/15/23 09:02 Atorvastatin 40 Mg Tab PO 40 mg DAILY [facility] Administration Sodium Chloride 1,000 mls @ 20 mls/hr 03/14/23 15:00 03/15/23 11:57 Saline 0.9% IV 20 mls/hr .Q24H [facility] Administration Piperacillin Sod/Tazobactam 100 mls @ 25 mls/hr 03/15/23 00:00 03/15/23 07:44 Sod 3.375 gm/ Sodium Chloride IVPB 25 mls/hr Q8HR [facility] Administration Protocol Ibuprofen 400 mg 03/14/23 14:51 Ibuprofen 400 Mg Tab PO Q6HR PRN Mild Pain or Fever > 100.5 Melatonin 5 mg 03/15/23 21:00 Melatonin 5 Mg Tablet PO HS [facility] Naloxone HCl 0.2 mg 03/14/23 14:51 Naloxone 0.4 Mg/Ml 1 Ml Vial IV Q2M PRN Opioid Reversal Ondansetron HCl 4 mg 03/14/23 14:51 Ondansetron 4 Mg/2 Ml Vial IVP Q8HR PRN Nausea And Vomiting Pantoprazole Sodium 40 mg 03/15/23 07:30 03/15/23 07:41 Pantoprazole 40 Mg Tablet PO 40 mg [id number]-[id number] [facility] Administration Polyethylene Glycol 17 gm 03/15/23 09:00 03/15/23 09:02 Polyethylene Glycol 3350 17 Gm Powd.Pack PO Not Given DAILY [facility] Intake and Output 03/14/23 03/15/23 03/15/23 22:59 06:59 14:59 Intake Total 1400 454 Balance 1400 454 Intake: Intake, IV Titration 1400 100 Amount Azithromycin 500 mg In 250 Sodium Chloride 0.9% 250 ml @ 250 mls/hr IVPB DAILY [facility] Rx#:[id number] Piperacillin-Tazobactam 3 100 100 .375 gm In Sodium Chloride 0.9% 100 ml @ 25 mls/hr IVPB Q8HR [facility] Rx# :[id number] Sodium Chloride 0.9% 1, 1000 000 ml @ 999 mls/hr IV . Q1H1M [facility] Rx#:[id number] cefTRIAXone 2 gm In 50 Sodium Chloride 0.9% 50 ml @ 100 mls/hr IVPB Q24HR [facility] Rx#:[id number] Oral 354 Other: Weight 89.358 kg Patient Weight 03/16/23 06:59 Weight 89.358 kg 03/15/23 08:50 03/15/23 08:50
[2023-03-15] MEDS: MELATONIN 5 MG TABLET PO SCH (19:57)
--- NOTE | 2023-03-15 20:25 | P.CONS ---
History of Present Illness - Reason for Consult Consult date: 03/15/23 Sepsis Requesting physician: Shalonda Correia - Chief Complaint Weakness shortness of breath x few days - History of Present Illness Patient is a 83-year-old male with a past medical history significant for atrial fibrillation coronary artery disease heart failure hypertension hyperlipidemia NM patient presented to [facility] for evaluation of generalized weakness fever and difficulty urination symptoms started on Wednesday for the patient was evaluated at the outside facility patient was evaluated he was noticed to be febrile temperature of 102 F and did have a UA concerning for UTI for the patient has been transferred to [facility] on presentation to the hospital patient fever has resolved and the patient was afebrile patient was not hypotensive or tachycardic mildly hypoxic requiring supplemental oxygen patient did have white count of 20,000 with a left shift BUN/creatinine has been mildly elevated did have elevated troponin influenza RSV and COVID testing all negative patient did have a chest x-ray borderline cardiomegaly interstitial prominence consistent with mild pulmonary vascular congestion patient did have a CT angiogram of the chest extensive breathing motion artifact no obvious PE extensive posterior opacity and groundglass suspect extensive dependent and generalized atelectasis patient was started initially on Rocephin and Zithromax and has been switched to Zosyn infectious disease was consulted for further management of antibiotic therapy, patient has been complaining of some shortness of breath he also have a cough which is moderate intensity occasional sputum production denies any pleuritic chest pain no nausea no vomiting has been complaining of cough especially after he eats but denies any obvious choking no vomiting or diarrhea Review of Systems Positive point and negatives has been mentioned in the HPI, complete review of systems was performed and all other systems are negative Past Medical History Past Medical History: Atrial Fibrillation, Coronary Artery Disease (CAD), Heart Failure, CVA/TIA, Eye Disorder, Hyperlipidemia, Hypertension, Myocardial Infarction ([place]) Additional Past Medical History / Comment(s): dysphagia, cataracts, ulcers, macular degeneration, AAA, Last Myocardial Infarction Date:: 1999 History of Any Multi-Drug Resistant Organisms: None Reported Past Surgical History: Adenoidectomy, Cholecystectomy, Heart Catheterization With Stent Additional Past Surgical History / Comment(s): CABG, lumbar discectomy Date of Last Stent Placement:: 1999 Past Psychological History: No Psychological Hx Reported Smoking Status: Former smoker Past Alcohol Use History: None Reported Past Drug Use History: None Reported Medications and Allergies Home Medications Medication Instructions Recorded Confirmed Type Apixaban [Eliquis] 2.5 mg PO BID 03/14/23 03/14/23 History Aspirin EC [Ecotrin Low Dose] 81 mg PO DAILY 03/14/23 03/14/23 History Atorvastatin [Lipitor] 40 mg PO DAILY 03/14/23 03/14/23 History Cetirizine HCl [Zyrtec] 10 mg PO DAILY 03/14/23 03/14/23 History DULoxetine HCL [Cymbalta] 30 mg PO DAILY 03/14/23 03/14/23 History Magnesium Oxide [Mag-Ox] 400 mg PO DAILY 03/14/23 03/14/23 History Melatonin 5 mg PO HS 03/14/23 03/14/23 History Multivitamins, Thera [Multivitamin 1 tab PO DAILY 03/14/23 03/14/23 History (formulary)] Pantoprazole [Protonix] 40 mg PO DAILY 03/14/23 03/14/23 History polyethylene glycoL 3350 [Miralax] 17 gm PO DAILY 03/14/23 03/14/23 History rOPINIRole HCL [Requip] 0.25 mg PO BID 03/14/23 03/14/23 History Acetaminophen Tab [Tylenol] 650 mg PO Q6HR PRN tab 03/18/23 Rx Metoprolol Tartrate [Lopressor] 12.5 mg PO DAILY #30 tab 03/18/23 Rx Allergies Allergy/AdvReac Type Severity Reaction Status Date / Time No Known Allergies Allergy Verified 03/14/23 15:22 Physical Exam Vitals: Vital Signs Temp Pulse Pulse Resp BP BP Pulse Ox 03/15/23 08:41 76 03/15/23 08:28 70 98 03/15/23 08:25 98.1 F 72 20 125/66 98 03/15/23 07:46 98.2 F 65 03/15/23 07:00 68 22 117/63 97 03/15/23 06:00 64 12 104/75 98 03/15/23 05:00 70 13 104/57 95 03/15/23 04:00 70 18 97/48 87 L 03/15/23 03:00 70 21 105/57 91 L 03/15/23 02:00 65 20 101/55 93 L 03/15/23 01:00 63 21 100/58 98 03/15/23 00:00 68 20 98/53 94 L 03/14/23 23:00 64 22 91/49 94 L 03/14/23 21:00 80 20 111/62 95 03/14/23 20:24 77 03/14/23 20:15 71 03/14/23 19:00 74 21 119/58 95 03/14/23 18:35 98.8 F 74 20 117/62 97 03/14/23 17:00 74 20 130/70 97 03/14/23 16:38 73 03/14/23 16:27 73 03/14/23 14:00 75 20 96/60 95 03/14/23 13:59 74 03/14/23 13:49 74 03/14/23 13:05 73 22 97/45 93 L 03/14/23 12:42 98.3 F 78 20 87/41 93 L Intake and Output 03/14/23 03/15/23 03/15/23 22:59 06:59 14:59 Intake Total 1400 336 Balance 1400 336 Intake: Intake, IV Titration 1400 100 Amount Azithromycin 500 mg In 250 Sodium Chloride 0.9% 250 ml @ 250 mls/hr IVPB DAILY [facility] Rx#:[id number] Piperacillin-Tazobactam 3 100 100 .375 gm In Sodium Chloride 0.9% 100 ml @ 25 mls/hr IVPB Q8HR [facility] Rx# :[id number] Sodium Chloride 0.9% 1, 1000 000 ml @ 999 mls/hr IV . Q1H1M [facility] Rx#:[id number] cefTRIAXone 2 gm In 50 Sodium Chloride 0.9% 50 ml @ 100 mls/hr IVPB Q24HR [facility] Rx#:[id number] Oral 236 Other: Weight 89.358 kg GENERAL DESCRIPTION: Elderly male lying in bed, no distress. No tachypnea or accessory muscle of respiration use. HEENT: Shows Pallor , no scleral icterus. Oral mucous membrane is dry. No pharyngeal erythema or thrush NECK: Trachea central, no thyromegaly. LUNGS: Unlabored breathing. Decreased breath sound at the base HEART: S1, S2, regular rate and rhythm. No loud murmur ABDOMEN: Soft, no tenderness , guarding or rigidity, no organomegaly EXTREMITIES: No edema of feet. SKIN: No rash, no masses palpable. NEUROLOGICAL: The patient is awake, alert, oriented x3, mood and affect normal. Results CBC & Chem 7: 03/17/23 07:19 03/18/23 07:40 Labs: Abnormal Lab Results - Last 24 Hours (Table) 03/14/23 03/14/23 03/14/23 Range/Units 12:45 12:45 12:45 WBC 20.8 H (3.8-10.6) k/uL RBC (4.30-5.90) m/uL Hgb (13.0-17.5) gm/dL Plt Count 145 L (150-450) k/uL Neutrophils # 19.7 H (1.3-7.7) k/uL Lymphocytes # 0.6 L (1.0-4.8) k/uL D-Dimer 1.05 H (<0.60) mg/L FEU BUN 28 H (9-20) mg/dL Creatinine 1.60 H (0.66-1.25) mg/dL Glucose 103 H (74-99) mg/dL Calcium 7.5 L (8.4-10.2) mg/dL Total Bilirubin 1.6 H (0.2-1.3) mg/dL Troponin I (0.000-0.034) ng/mL Total Protein 5.5 L (6.3-8.2) g/dL Albumin 2.9 L (3.5-5.0) g/dL 03/14/23 03/14/23 03/14/23 Range/Units 12:45 15:42 18:38 WBC (3.8-10.6) k/uL RBC (4.30-5.90) m/uL Hgb (13.0-17.5) gm/dL Plt Count (150-450) k/uL Neutrophils # (1.3-7.7) k/uL Lymphocytes # (1.0-4.8) k/uL D-Dimer (<0.60) mg/L FEU BUN (9-20) mg/dL Creatinine (0.66-1.25) mg/dL Glucose (74-99) mg/dL Calcium (8.4-10.2) mg/dL Total Bilirubin (0.2-1.3) mg/dL Troponin I 0.992 H* 1.300 H* 1.290 H* (0.000-0.034) ng/mL Total Protein (6.3-8.2) g/dL Albumin (3.5-5.0) g/dL 03/15/23 03/15/23 Range/Units 08:50 08:50 WBC 18.7 H (3.8-10.6) k/uL RBC 4.25 L (4.30-5.90) m/uL Hgb 12.7 L (13.0-17.5) gm/dL Plt Count 137 L (150-450) k/uL Neutrophils # 16.8 H (1.3-7.7) k/uL Lymphocytes # 0.8 L (1.0-4.8) k/uL D-Dimer (<0.60) mg/L FEU BUN 30 H (9-20) mg/dL Creatinine 1.46 H (0.66-1.25) mg/dL Glucose 70 L (74-99) mg/dL Calcium 8.0 L (8.4-10.2) mg/dL Total Bilirubin (0.2-1.3) mg/dL Troponin I (0.000-0.034) ng/mL Total Protein 5.6 L (6.3-8.2) g/dL Albumin 2.9 L (3.5-5.0) g/dL Assessment and Plan (1) Pneumonia Status: Acute Code(s): J18.9 - PNEUMONIA, UNSPECIFIED ORGANISM SNOMED Cod e(s): 553639699 (2) Sepsis Status: Acute Code(s): A41.9 - SEPSIS, UNSPECIFIED ORGANISM SNOMED Code(s): 81967336 Plan: 1patient presented to the outside facility with fever and weakness with initial concern for possible UTI in this patient who did have a features of sepsis with elevated white count fever patient also have a cough and has been complaining of coughing especially after eating concerning for possible aspiration pneumonia and will need to cover for the polymicrobial monty usually associated with aspiration pneumonia, patient also have elevated procalcitonin 2-try to obtain sputum for Gram stain and culture 3-continue with Zosyn 3.375 g every 8 hours along with aspiration precaution We will follow on clinical condition and cultures to further adjust medication if needed Thank you for this consultation we will follow the patient along with you Dictation was produced using [employer] dictation software. please excuse any grammatical, word or spelling errors. Time with Patient: Greater than 30
[2023-03-15 22:09] LABS: Appearance,Urine Cloudy (Clear); Bilirubin,Urine Negative (Negative); Blood,Urine Trace (Negative); Color,Urine Yellow; Glucose,Urine (UA) Negative (Negative); Ketones,Urine Negative (Negative); Leukocyte Esterase,Urine Large (Negative); Nitrite,Urine Negative (Negative); PH, Urine 5.5 (5.0-8.0); Protein,Urine 1+ (Negative); RBC,Urine 6 /hpf (0-5); Specific Gravity,Urine 1.025 (1.001-1.035); Squamous Epithelial Cell,Urine <1 /hpf (0-4); Urobilinogen,Urine <2.0 mg/dL (<2.0); WBC,Urine 151 /hpf (0-5)
--- NOTE | 2023-03-16 06:29 | P.PN ---
Subjective Progress Note Date: 03/15/23 This is a 83-year-old male who was recently admitted from [facility] for further evaluation with concerns of possible acute urinary tract infection being closely monitored. Patient also had elevated troponins possible acute nstemi and report to having some coughing after eating with concerns of aspiration pneumonia. Patient started on antibiotics and gentle IV hydration with infectious disease on consult. Patient with significant weakness although reports is chronically weak from previous stroke would recommend physical therapy evaluation. Speech to evaluate as well. Would continue with aspiration precautions and head of the bed elevated 30-45 at all times. Patient is currently afebrile with no reports of chest pain or palpitations. No reported worsening shortness of breath all the patient continues with cough Review of systems: Constitutional: No reports of fatigue, reported previous fever, or chills Cardiovascular: No reports of chest pain or palpitations Respiratory: reports of shortness of breath with cough GI: No reports of nausea, no reports of vomiting, no diarrhea : No reports of dysuria or retention Neurovascular: reports of generalized weakness All medications have been reviewed PHYSICAL EXAMINATION: GENERAL: The patient is alert and oriented x4, Well developed, well nourished. Obese HEENT: Pupils are round and equally reacting to light. EOMI. no scleral icterus. No conjunctival pallor. Normocephalic, atraumatic. No pharyngeal erythema. No thyromegaly. CARDIOVASCULAR: S1 and S2 muffled PULMONARY: diminished breath sounds bilaterally with no wheezing or rhonchi noted. ABDOMEN: soft. Nontender on exam. obese. non-distended, normoactive bowel sounds. No palpable organomegaly. MUSCULOSKELETAL: No joint swelling or deformity. EXTREMITIES: No cyanosis, clubbing, or pedal edema. NEUROLOGICAL: Gross neurological examination did not reveal any focal deficits. Diffuse weakness SKIN: No rashes. Assessment: Bibasilar pneumonia with possible sepsis, present on admission with concerns of possible aspiration pneumonia Troponin 1.60 with acute nstemi Acute renal failure possibly secondary to dehydration History of atrial fibrillation History of congestive heart failure, unknown EF History of hypertension History of hyperlipidemia History of CVA/TIA Obesity with a BMI of 30.9 GI prophylaxis DVT prophylaxis Full code Plan: Recommend to continue with current medications and management with consultations following Infectious disease along with pulmonary following maintained on breathing treatments along with IV antibiotics Patient has speech therapy evaluation for possible aspiration and would recommend aspiration precautions with head of the bed elevated 30-45 at all times and supervision with meals Pro-calcitonin is elevated and will continue with antibiotic therapy per ID recommendations. Awaiting cultures Patient with significant weakness with history of CVA would recommend physical therapy evaluation Will follow-up with repeat labs and continue to monitor closely Due to multiple complex medical issues, prognosis is guarded The impression and plan of care has been dictated by Courtney Temple, nurse practitioner as directed. Dr. Isela MD I have performed a history and examination and MDM of this patient, discussed the same with the dictator, and agree with the dictator's assessment and plan as written ,documented as a scribe. Based on total visit time, I have performed more than 50% of the visit. Any additional findings or plans will be noted. Objective - Vital Signs Vital signs: Vital Signs Temp 98.2 F 03/15/23 07:46 Pulse 76 03/15/23 08:41 Resp 22 03/15/23 07:00 BP 117/63 03/15/23 07:00 Pulse Ox 98 03/15/23 08:28 FiO2 Intake & Output 03/14/23 03/15/23 03/15/23 18:59 06:59 18:59 Intake Total 1400 Balance 1400 Weight 89.358 kg Intake: Intake, IV Titration 1400 Amount Azithromycin 500 mg In 250 Sodium Chloride 0.9% 250 ml @ 250 mls/hr IVPB DAILY [facility] Rx#:[id number] Piperacillin-Tazobactam 3 100 .375 gm In Sodium Chloride 0.9% 100 ml @ 25 mls/hr IVPB Q8HR [facility] Rx# :[id number] Sodium Chloride 0.9% 1, 1000 000 ml @ 999 mls/hr IV . Q1H1M STA Rx#:[id number] cefTRIAXone 2 gm In 50 Sodium Chloride 0.9% 50 ml @ 100 mls/hr IVPB Q24HR [facility] Rx#:[id number] - Labs CBC & Chem 7: 03/15/23 08:50 03/15/23 08:50 Labs: Abnormal Lab Results - Last 24 Hours (Table) 03/14/23 03/14/23 03/14/23 Range/Units 12:45 12:45 12:45 WBC 20.8 H (3.8-10.6) k/uL RBC (4.30-5.90) m/uL Hgb (13.0-17.5) gm/dL Plt Count 145 L (150-450) k/uL Neutrophils # 19.7 H (1.3-7.7) k/uL Lymphocytes # 0.6 L (1.0-4.8) k/uL D-Dimer 1.05 H (<0.60) mg/L FEU BUN 28 H (9-20) mg/dL Creatinine 1.60 H (0.66-1.25) mg/dL Glucose 103 H (74-99) mg/dL Calcium 7.5 L (8.4-10.2) mg/dL Total Bilirubin 1.6 H (0.2-1.3) mg/dL Troponin I (0.000-0.034) ng/mL Total Protein 5.5 L (6.3-8.2) g/dL Albumin 2.9 L (3.5-5.0) g/dL 03/14/23 03/14/23 03/14/23 Range/Units 12:45 15:42 18:38 WBC (3.8-10.6) k/uL RBC (4.30-5.90) m/uL Hgb (13.0-17.5) gm/dL Plt Count (150-450) k/uL Neutrophils # (1.3-7.7) k/uL Lymphocytes # (1.0-4.8) k/uL D-Dimer (<0.60) mg/L FEU BUN (9-20) mg/dL Creatinine (0.66-1.25) mg/dL Glucose (74-99) mg/dL Calcium (8.4-10.2) mg/dL Total Bilirubin (0.2-1.3) mg/dL Troponin I 0.992 H* 1.300 H* 1.290 H* (0.000-0.034) ng/mL Total Protein (6.3-8.2) g/dL Albumin (3.5-5.0) g/dL 03/15/23 03/15/23 Range/Units 08:50 08:50 WBC 18.7 H (3.8-10.6) k/uL RBC 4.25 L (4.30-5.90) m/uL Hgb 12.7 L (13.0-17.5) gm/dL Plt Count 137 L (150-450) k/uL Neutrophils # 16.8 H (1.3-7.7) k/uL Lymphocytes # 0.8 L (1.0-4.8) k/uL D-Dimer (<0.60) mg/L FEU BUN 30 H (9-20) mg/dL Creatinine 1.46 H (0.66-1.25) mg/dL Glucose 70 L (74-99) mg/dL Calcium 8.0 L (8.4-10.2) mg/dL Total Bilirubin (0.2-1.3) mg/dL Troponin I (0.000-0.034) ng/mL Total Protein 5.6 L (6.3-8.2) g/dL Albumin 2.9 L (3.5-5.0) g/dL
[2023-03-16] MEDS: PANTOPRAZOLE 40 MG TABLET PO SCH (06:45)
[2023-03-16] MEDS: IPRATROPIUM-ALBUTEROL 3 ML NEB INHALATION SCH ×4 (08:24→20:35)
[2023-03-16 09:08] LABS: Basophils % (A) 0 %; Eosinophils # (A) 0.4 k/uL (0-0.7); Eosinophils % (A) 3 %; HCT 39.3 % (39.0-53.0); HGB 12.3 gm/dL (13.0-17.5); Lymphocytes # (A) 0.8 k/uL (1.0-4.8); Lymphocytes % (A) 6 %; MCH 29.7 pg (25.0-35.0); MCHC 31.3 g/dL (31.0-37.0); MCV 95.1 fL (80.0-100.0); Mean Platelet Volume 9.8; Monocytes % (A) 7 %; Neutrophils # (A) 11.3 k/uL (1.3-7.7); Neutrophils % (A) 82 %; Platelet Count 133 k/uL (150-450); RBC 4.13 m/uL (4.30-5.90); RDW 14.2 % (11.5-15.5); WBC 13.7 k/uL (3.8-10.6)
[2023-03-16] MEDS: ASPIRIN 81 MG PO SCH (09:13)
[2023-03-16] MEDS: ATORVASTATIN 40 MG TAB PO SCH (09:13)
[2023-03-16] MEDS: APIXABAN 2.5 MG TABLET PO SCH ×2 (09:13→20:00)
[2023-03-16] MEDS: METOPROLOL TARTRATE 12.5 MG TAB PO SCH (09:13)
[2023-03-16] MEDS: polyethylene glycoL 3350 17 GM POWD.PACK PO SCH (09:14)
[2023-03-16] MEDS: PIPERACILLIN-TAZOBACTAM 3.375 GM in SODIUM CHLORIDE 0.9% 100 ML IVPB SCH ×2 (09:14→15:50)
[2023-03-16 09:21] LABS: African American GFR (CKD) 51 (>60 ml/min/1.73 sqM); Anion Gap 5 mmol/L; Blood Urea Nitrogen 25 mg/dL (9-20); Calcium 8.1 mg/dL (8.4-10.2); Carbon Dioxide 27 mmol/L (22-30); Chloride 106 mmol/L (98-107); Glucose 91 mg/dL (74-99); Magnesium 2.1 mg/dL (1.6-2.3); Non-African American GFR(CKD) 44 (>60 ml/min/1.73 sqM); Potassium 3.6 mmol/L (3.5-5.1); Sodium 138 mmol/L (137-145)
--- NOTE | 2023-03-16 12:35 | P.PN ---
Subjective Progress Note Date: 03/16/23 Principal diagnosis: Acute hypoxic respiratory failure, suspect aspiration pneumonia and urinary tract infection with sepsis I am seeing this patient in consultation today 03/15/2023 after he was transferred from [facility] yesterday for suspected sepsis. Patient is an 83 -year-old white male with past medical history significant for coronary artery disease status post CABG with subsequent stenting, hyperlipidemia, hypertension, AAA, atrial fibrillation, CVA with left-sided hemiparesis, esophageal strictures, and dysphagia. Patient also had a recent prolonged stay at [facility] for bowel obstruction, but did not require surgical intervention. Patient reports generalized weakness, fever, difficulties urinating including frequency and urgency that started on Wednesday. He did have a fall 1 week ago. UA at outside facility was concerning for UTI. Reportedly had a T-max of 102F. There was also a component of acute kidney injury. No reported gastrointestinal complaints. He also is reporting some shortness of breath and occasional nonproductive cough. There are concerns about possible aspiration. Denies history of COPD or asthma. Denies sick contacts. Negative for influenza, RSV, COVID-19. Patient is currently sitting up in bed, on 2 L/m nasal cannula, in no acute distress. A follow-up chest x-ray at our facility shows borderline cardiomegaly, and interstitial prominence consistent with mild pulmonary vascular congestion. There was a possible small left pleural effusion with adjacent atelectasis and/or consolidation. A follow-up chest CTA was negative for any large central pulmonary embolism. It did show extensive bilateral posterior opacities thought to be atelectasis without pleural effusion or obvious focal consolidation. CBC on arrival shows leukocytosis with a WBC count of 21, hemoglobin 13.3, hematocrit 41, platelets 145. BMP shows a sodium 140, potassium 3.5, chloride 105, serum bicarb 27, BUN 28, creatinine 1.6, gluco se 103. Troponins are elevated at 0.99, 1.3, and 1.29. NT proBNP was 1750. No IV maintenance fluids infusing. Currently on a combination of azithromycin and Zosyn. Patient is currently afebrile. Appears nontoxic, and vital signs are stable at this time. Patient was reevaluated today on 03/16/2023, feeling better, nonetheless continues to have some intermittent cough, his cough is relatively chronic in nature, patient remains on antibiotics in the form of Zosyn, seen by infectious disease and Zosyn. Cultures of Blood and Urine Are Pending and No Sputum Cultures Have Been Sent. His Pro-Calcitonin Level Was Elevated. WBC Count Is down Today to 13.7 from 18.7 the Rest of the Labs Are Unremarkable Renal Profile Remains Abnormal with Creatinine of 1.44, It Was 1.46 Yesterday. Admission Creatinine Was 1.60 Objective - Vital Signs Vital signs: Vital Signs Temp 97.8 F 03/16/23 11:26 Pulse 70 03/16/23 11:26 Resp 17 03/16/23 11:26 BP 166/82 03/16/23 11:26 Pulse Ox 97 03/16/23 11:26 FiO2 Intake & Output 03/15/23 03/16/23 03/16/23 18:59 06:59 18:59 Intake Total 984 180 Output Total 300 200 Balance 984 -300 -20 Weight 89.358 kg Intake: Intake, IV Titration 450 Amount Azithromycin 500 mg In 250 Sodium Chloride 0.9% 250 ml @ 250 mls/hr IVPB DAILY [facility] Rx#:[id number] Piperacillin-Tazobactam 3 200 .375 gm In Sodium Chloride 0.9% 100 ml @ 25 mls/hr IVPB Q8HR [facility] Rx# :[id number] Oral 534 180 Output: Urine 300 200 Other: Voiding Method Urinal Urinal # Voids 1 # Bowel Movements 1 - Exam Physical Exam: Revealed a 83-year-old white male in no distress Head: Atraumatic, normocephalic. HEENT:[Neck is supple.] [No neck masses.] [No thyromegaly.] [No JVD.] Chest: Diminished breath sounds and crackles at the left base and to some extent at the right base. Cardiac Exam: [Normal S1 and S2, no S3 gallop, no murmur.] Abdomen: [Soft, nontender, no megaly, no rebound, no guarding, normal bowel sounds.] Extremities: [No clubbing, no edema, no cyanosis.] Neurological Exam: Left sided hemiparesis is noted with weakness noted in the left upper extremity 3/5 and left lower extremity 2/5 with left facial drawing droop related to previous CVA. Psychiatric: Normal mood, affect and normal mental status examination. Skin: No rashes - Labs CBC & Chem 7: 03/16/23 07:15 03/16/23 07:15 Labs: Abnormal Lab Results - Last 24 Hours (Table) 03/15/23 03/15/23 03/16/23 Range/Units 08:50 22:03 07:15 WBC 13.7 H (3.8-10.6) k/uL RBC 4.13 L (4.30-5.90) m/uL Hgb 12.3 L (13.0-17.5) gm/dL Plt Count 133 L (150-450) k/uL Neutrophils # 11.3 H (1.3-7.7) k/uL Lymphocytes # 0.8 L (1.0-4.8) k/uL BUN (9-20) mg/dL Creatinine (0.66-1.25) mg/dL Calcium (8.4-10.2) mg/dL Procalcitonin 23.90 H (0.02-0.09) ng/mL Urine Protein 1+ H (Negative) Urine Blood Trace H (Negative) Ur Leukocyte Esterase Large H (Negative) Urine RBC 6 H (0-5) /hpf Urine WBC 151 H (0-5) /hpf Urine WBC Clumps Moderate H (None) /hpf 03/16/23 Range/Units 07:15 WBC (3.8-10.6) k/uL RBC (4.30-5.90) m/uL Hgb (13.0-17.5) gm/dL Plt Count (150-450) k/uL Neutrophils # (1.3-7.7) k/uL Lymphocytes # (1.0-4.8) k/uL BUN 25 H (9-20) mg/dL Creatinine 1.44 H (0.66-1.25) mg/dL Calcium 8.1 L (8.4-10.2) mg/dL Procalcitonin (0.02-0.09) ng/mL Urine Protein (Negative) Urine Blood (Negative) Ur Leukocyte Esterase (Negative) Urine RBC (0-5) /hpf Urine WBC (0-5) /hpf Urine WBC Clumps (None) /hpf Assessment and Plan Assessment: Impression: Acute hypoxemic respiratory failure, on 2 L/m nasal cannula. Suspect aspiration pneumonia/recurrent Suspected UTI Leukocytosis, secondary to above Sepsis secondary to above Acute kidney injury, creatinine 1.6 Elevated troponins, likely supply/demand mismatch Left lower extremity edema Elevated d-dimer, chest CTA shows no evidence of large central pulmonary embolism. Ascending aortic aneurysm, measuring 3.9 cm on chest CTA Coronary artery disease, status post CABG with subsequent PCI and stenting Hyperlipidemia Benign essential hypertension Obesity, BMI of 31 Remote history of CVA with residual left-sided hemiparesis History of atrial fibrillation, currently in normal sinus rhythm. Anticoagulated on Eliquis History of bowel obstruction History of esophageal strictures and dysphagia Remote ex-smoker Recommendation: Continue Zosyn Continue oxygen and titrate accordingly Awaiting cultures of blood and urine and hopefully sputum Pro calcitonin level was noted to be elevated negative Doppler for DVT noted Consider speech therapy evaluation for possible aspiration/recurrent. We'll continue to follow Time with Patient: Less than 30
--- NOTE | 2023-03-16 13:37 | P.PN ---
Subjective Progress Note Date: 03/16/23 History of present illness: This is an 83-year-old male patient with past medical history of coronary artery disease status post CABG in 1988 the [facility], status post multiple stents,paroxysmal atrial fibrillation on eliquis, hypertension, orthostatic hypotension, hyperlipidemia, history of CVA with left-sided weakness. 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 By the evening he was feeling improvement about his symptoms had resolved. Wednesday he woke up and he couldn't get out of bed due to weakness, feeling tired. He still felt that he could not even walk. He was transported by ambulance to [facility] he was evaluated and subsequently transferred to [facility]. EKG sinus rhythm Chest x-ray:borderline cardiomegaly. Hypoventilatory changes. Interstitial pro minence consistent with mild pulmonary vascular congestion. Small left effusion with adjacent atelectasis and/or consolidation. CTA of the chest revealed extensive breathing motion artifact. No obvious pulmonary embolus, and many of the segmental and more distal fractures on the right are nondiagnostic and emboli cannot be excluded. Extensive posterior opacities and groundglass suspect extensive dependent and generalized atelectasis. No pleural effusions or definite acute process. Mild card iomegaly, CAD, pulmonary artery hypertension. Correlate for underlying mild CHF. WBC initially 20.8 now 18.7, hemoglobin 12.7, platelet count 137. INR 1.0. D- dimer 1.05. Electrolytes normal, BUN 30 creatinine 1.46. Troponins 0.992, 1.3, 1.29. Pro-calcitonin 23.9. Influenza A, influenza B, RSV, Covid 19 not detected. Home cardiac medications: Eliquis 2.5 mg twice daily, aspirin 81 mg daily, Lipitor 40 mg daily, Florinef 0.1 mg every 48 hours, Lasix 40 mg daily, magnesium oxide 400 mg daily, Procardia XL 60 milligrams daily, potassium chloride 20 mEq daily, sotalol 80 mg twice daily. Echocardiogram 2020performed at [facility] revealed normal EF 55-60%, aortic sclerosis, mild AR, moderate left ventricular hypertrophy, right ventricular is mildly dilated, grade 2 diastolic dysfunction, probably mildly enlarged. Holter monitor 2017 normal Stress test 2017 small area of apical ischemia with EF of 52%. Cardiac catheterization 2011 chronically occluded CABG 20. Patent MELENDEZ to LAD with 100% chronic total occlusion of the mid LAD beyond the graft insertion site, Patent stent in the proximal MELENDEZ to LAD, patent stent in the left main into ramus. 03/16 Patient is seen today in follow-up. He is sitting in recliner appears to be comfortable. He states his breathing is improved. He denies having any chest pain or pressure. His blood pressure is elevated with systolic 160 to 180s over 82, heart rate is running in the 60s and 70s. Pulse ox is 97% on 3 L. Repeat blood work reveals improvement of leukocytosis with WBC 13.7, hemoglobin 12.3 and platelet count 133. Electrolytes are normal. BUN 25 creatinine 1.44. Urinalysis positive for infection. Echocardiogram is pending. Physical examination: Gen: This is an 83-year-old male appears comfortable. No acute distress. VS: reviewed HEENT: Head is atraumatic, normocephalic. Pupils equal, round. Sclerae is anicteric. NECK: Supple. No JVD. LUNGS: Clear to auscultation. No wheezes or rhonchi. No intercostal retrac tions. HEART: Regular rate and rhythm. ABDOMEN: Soft No tenderness. EXTREMITIES: 2+ pedal edema. No calf tenderness. NEUROLOGICAL: Patient is awake, alert and oriented x3. Assessment: NSTEMI Sepsis secondary to UTI, possible pneumonia less likely CAD s/p CABG AFib, paroxysmal HTN HLD CVA Plan: Continue patient's home medications continue low dose BB Lopressor 12.5 mg daily Obtain 2-D echocardiogram and Doppler study report Continue treatment for sepsis Further recommendations to follow based upon clinical course Thank you kindly for this consultation. Nurse practitioner note has been reviewed, I agree with documented findings and plan of care. Patient was seen and examined. Objective - Vital Signs Vital signs: Vital Signs Temp 97.8 F 03/16/23 11:26 Pulse 70 03/16/23 11:26 Resp 17 03/16/23 11:26 BP 166/82 03/16/23 11:26 Pulse Ox 97 03/16/23 11:26 FiO2 Intake & Output 03/15/23 03/16/23 03/16/23 18:59 06:59 18:59 Intake Total 984 180 Output Total 300 200 Balance 984 -300 -20 Weight 89.358 kg Intake: Intake, IV Titration 450 Amount Azithromycin 500 mg In 250 Sodium Chloride 0.9% 250 ml @ 250 mls/hr IVPB DAILY [facility] Rx#:[id number] Piperacillin-Tazobactam 3 200 .375 gm In Sodium Chloride 0.9% 100 ml @ 25 mls/hr IVPB Q8HR [facility] Rx# :[id number] Oral 534 180 Output: Urine 300 200 Other: Voiding Method Urinal Urinal # Voids 1 # Bowel Movements 1 - Labs CBC & Chem 7: 03/16/23 07:15 03/16/23 07:15 Labs: Abnormal Lab Results - Last 24 Hours (Table) 03/15/23 03/15/23 03/16/23 Range/Units 08:50 22:03 07:15 WBC 13.7 H (3.8-10.6) k/uL RBC 4.13 L (4.30-5.90) m/uL Hgb 12.3 L (13.0-17.5) gm/dL Plt Count 133 L (150-450) k/uL Neutrophils # 11.3 H (1.3-7.7) k/uL Lymphocytes # 0.8 L (1.0-4.8) k/uL BUN (9-20) mg/dL Creatinine (0.66-1.25) mg/dL Calcium (8.4-10.2) mg/dL Procalcitonin 23.90 H (0.02-0.09) ng/mL Urine Protein 1+ H (Negative) Urine Blood Trace H (Negative) Ur Leukocyte Esterase Large H (Negative) Urine RBC 6 H (0-5) /hpf Urine WBC 151 H (0-5) /hpf Urine WBC Clumps Moderate H (None) /hpf 03/16/23 Range/Units 07:15 WBC (3.8-10.6) k/uL RBC (4.30-5.90) m/uL Hgb (13.0-17.5) gm/dL Plt Count (150-450) k/uL Neutrophils # (1.3-7.7) k/uL Lymphocytes # (1.0-4.8) k/uL BUN 25 H (9-20) mg/dL Creatinine 1.44 H (0.66-1.25) mg/dL Calcium 8.1 L (8.4-10.2) mg/dL Procalcitonin (0.02-0.09) ng/mL Urine Protein (Negative) Urine Blood (Negative) Ur Leukocyte Esterase (Negative) Urine RBC (0-5) /hpf Urine WBC (0-5) /hpf Urine WBC Clumps (None) /hpf
[2023-03-16] MEDS: SODIUM CHLORIDE 0.9% 1,000 ML IV SCH (15:50)
--- NOTE | 2023-03-16 16:01 | P.PN ---
Subjective Progress Note Date: 03/16/23 Principal diagnosis: Gram-negative bacteremia and pneumonia Patient is a 83-year-old male with a past medical history significant for atrial fibrillation coronary artery disease heart failure hypertension hyperlipidemia IN patient presented to [facility] for evaluation of generalized weakness fever and difficulty urination, patient did have CT angiogram of the chest we did show extensive posterior opacities and concern for possible pneumonia, patient blood culture drawn at outside facility came back positive with gram-negative bacilli on today's evaluation and that is 03/16/2023, patient denies having any fever or any chills, the patient is breathing comfortably on 3 L nasal cannula oxygen patient denies having any chest pain he can to have a cough unable to bring up any sputum no nausea no vomiting no abdominal pain or diarrhea Objective - Vital Signs Vital signs: Vital Signs Temp 97.8 F 03/16/23 11:26 Pulse 70 03/16/23 11:26 Resp 17 03/16/23 11:26 BP 166/82 03/16/23 11:26 Pulse Ox 97 03/16/23 11:26 FiO2 Intake & Output 03/15/23 03/16/23 03/16/23 18:59 06:59 18:59 Intake Total 984 180 Output Total 300 200 Balance 984 -300 -20 Weight 89.358 kg Intake: Intake, IV Titration 450 Amount Azithromycin 500 mg In 250 Sodium Chloride 0.9% 250 ml @ 250 mls/hr IVPB DAILY [facility] Rx#:[id number] Piperacillin-Tazobactam 3 200 .375 gm In Sodium Chloride 0.9% 100 ml @ 25 mls/hr IVPB Q8HR [facility] Rx# :[id number] Oral 534 180 Output: Urine 300 200 Other: Voiding Method Urinal Urinal # Voids 1 # Bowel Movements 1 - Exam GENERAL DESCRIPTION: An elderly male lying in bed in no distress RESPIRATORY SYSTEM: Unlabored breathing , decreased breath sounds at bases HEART: S1 S2 regular rate and rhythm , ABDOMEN: Soft , no tenderness EXTREMITIES: No edema feet - Labs CBC & Chem 7: 03/16/23 07:15 03/16/23 07:15 Labs: Abnormal Lab Results - Last 24 Hours (Table) 03/15/23 03/15/23 03/16/23 Range/Units 08:50 22:03 07:15 WBC 13.7 H (3.8-10.6) k/uL RBC 4.13 L (4.30-5.90) m/uL Hgb 12.3 L (13.0-17.5) gm/dL Plt Count 133 L (150-450) k/uL Neutrophils # 11.3 H (1.3-7.7) k/uL Lymphocytes # 0.8 L (1.0-4.8) k/uL BUN (9-20) mg/dL Creatinine (0.66-1.25) mg/dL Calcium (8.4-10.2) mg/dL Procalcitonin 23.90 H (0.02-0.09) ng/mL Urine Protein 1+ H (Negative) Urine Blood Trace H (Negative) Ur Leukocyte Esterase Large H (Negative) Urine RBC 6 H (0-5) /hpf Urine WBC 151 H (0-5) /hpf Urine WBC Clumps Moderate H (None) /hpf 03/16/23 Range/Units 07:15 WBC (3.8-10.6) k/uL RBC (4.30-5.90) m/uL Hgb (13.0-17.5) gm/dL Plt Count (150-450) k/uL Neutrophils # (1.3-7.7) k/uL Lymphocytes # (1.0-4.8) k/uL BUN 25 H (9-20) mg/dL Creatinine 1.44 H (0.66-1.25) mg/dL Calcium 8.1 L (8.4-10.2) mg/dL Procalcitonin (0.02-0.09) ng/mL Urine Protein (Negative) Urine Blood (Negative) Ur Leukocyte Esterase (Negative) Urine RBC (0-5) /hpf Urine WBC (0-5) /hpf Urine WBC Clumps (None) /hpf Assessment and Plan (1) Pneumonia Current Visit: Yes Status: Acute Code(s): J18.9 - PNEUMONIA, UNSPECIFIED ORGANISM SNOMED Code(s): 323057363 (2) Sepsis Current Visit: Yes Status: Acute Code(s): A41.9 - SEPSIS, UNSPECIFIED ORGANISM SNOMED Code(s): 31296802 Plan: 1patient presented to the outside facility with fever and weakness with initial concern for possible UTI in this patient who did have a features of sepsis with elevated white count fever patient also have a cough and has been complaining of coughing especially after eating concerning for possible aspiration pneumonia and will need to cover for the polymicrobial monty usually associated with aspiration pneumonia, patient also have elevated procalcitonin 2-try to obtain sputum for Gram stain and culture, blood cultures will be repeated documented clearance of his bacteremia 3-patient to continue with Zosyn 3.375 g every 8 hours along with aspiration precaution Family the bedside questions were answered Dictation was produced using [employer] dictation software. please excuse any g rammatical, word or spelling errors. Time with Patient: Less than 30
[2023-03-16] MEDS: MELATONIN 5 MG TABLET PO SCH (20:00)
[2023-03-17] MEDS: PIPERACILLIN-TAZOBACTAM 3.375 GM in SODIUM CHLORIDE 0.9% 100 ML IVPB SCH ×3 (01:36→16:25)
[2023-03-17] MEDS: PANTOPRAZOLE 40 MG TABLET PO SCH (06:10)
--- NOTE | 2023-03-17 07:01 | P.PN ---
Subjective Progress Note Date: 03/16/23 This is a 83-year-old male who was recently admitted from [facility] for further evaluation with concerns of possible acute urinary tract infection being closely monitored. Patient also had elevated troponins possible acute nstemi and report to having some coughing after eating with concerns of aspiration pneumonia. Patient started on antibiotics and gentle IV hydration with infectious disease on consult. Patient with significant weakness although reports is chronically weak from previous stroke would recommend physical therapy evaluation. Speech to evaluate as well. Would continue with aspiration precautions and head of the bed elevated 30-45 at all times. Patient is currently afebrile with no reports of chest pain or palpitations. No reported worsening shortness of breath all the patient continues with cough 03/16/2023 Patient is seen and evaluated in follow-up this morning currently sitting up in the chair. Patient reports he worked with physical therapy who got him up to the chair. Patient with significant weakness considering possibly ECF. Patient is continued on antibiotics with infectious disease following and would recommend aspiration precautions with head of bed elevated 30-45 and superficial with meals. Patient was seen and evaluated by speech continued on current diet. Repeat blood cultures pending. WBC is trending down and patient is afebrile. PT is maintained on 3 L via nasal cannula and reports does not normally wear oxygen outpatient. Encouraged increase activity as tolerated. Will also add incentive spirometer. Review of systems: Constitutional: No reports of fatigue, reported previous fever, or chills Cardiovascular: No reports of chest pain or palpitations Respiratory: reports of shortness of breath with cough, feeling somewhat improved GI: No reports of nausea, no reports of vomiting, no diarrhea, reports had 2 normal bowel movements : No reports of dysuria or retention Neurovascular: reports of generalized weakness All medications have been reviewed PHYSICAL EXAMINATION: GENERAL: The patient is alert and oriented x4, asleep although easily arousable, Well developed, well nourished. Obese HEENT: Pupils are round and equally reacting to light. EOMI. no scleral icterus. No conjunctival pallor. Normocephalic, atraumatic. No pharyngeal erythema. No thyromegaly. CARDIOVASCULAR: S1 and S2 muffled PULMONARY: diminished breath sounds bilaterally with no wheezing or rhonchi noted. ABDOMEN: soft. Nontender on exam. obese. non-distended, normoactive bowel sounds. No palpable organomegaly. MUSCULOSKELETAL: No joint swelling or deformity. EXTREMITIES: No cyanosis, clubbing, or pedal edema. NEUROLOGICAL: Gross neurological examination did not reveal any focal deficits. Diffuse weakness SKIN: No rashes. Assessment: Bibasilar pneumonia with possible sepsis, present on admission with concerns of possible aspiration pneumonia Possible acute urinary tract infection, present on admission Troponin 1.60 with acute nstemi Acute renal failure possibly secondary to dehydration History of atrial fibrillation History of congestive heart failure, unknown EF History of hypertension History of hyperlipidemia History of CVA/TIA Obesity with a BMI of 30.9 GI prophylaxis DVT prophylaxis Full code Plan: Recommend to continue with current medications and management with consultations following Infectious disease along with pulmonary following maintained on breathing treatments along with IV antibiotics Patient with concerns of possible aspiration and would recommend aspiration precautions with head of the bed elevated 30-45 at all times and supervision with meals Pro-calcitonin is elevated and will continue with antibiotic therapy per ID recommendations. Awaiting cultures Patient with significant weakness with history of CVA would recommend physical therapy evaluation Will follow-up with repeat labs and continue to monitor closely Due to multiple complex medical issues, prognosis is guarded The impression and plan of care has been dictated by Courtney Temple, nurse practitioner as directed. Dr. Isela MD I have performed a history and examination and MDM of this patient, discussed the same with the dictator, and agree with the dictator's assessment and plan as written ,documented as a scribe. Based on total visit time, I have performed more than 50% of the visit. Any additional findings or plans will be noted. Objective - Vital Signs Vital signs: Vital Signs Temp 98.3 F 03/17/23 04:00 Pulse 74 03/17/23 04:00 Resp 19 03/17/23 04:00 BP 128/76 03/17/23 04:00 Pulse Ox 96 03/17/23 04:00 FiO2 Intake & Output 03/16/23 03/16/23 03/17/23 06:59 18:59 06:59 Intake Total 280 Output Total 300 600 200 Balance -300 -320 -200 Intake: Oral 280 Output: Urine 300 600 200 Other: Voiding Method Urinal Urinal Urinal # Voids 1 # Bowel Movements 1 - Labs CBC & Chem 7: 03/16/23 07:15 03/16/23 07:15 Labs: Abnormal Lab Results - Last 24 Hours (Table) 07/18/23 07/18/23 Range/Units 07:15 07:15 WBC 13.7 H (3.8-10.6) k/uL RBC 4.13 L (4.30-5.90) m/uL Hgb 12.3 L (13.0-17.5) gm/dL Plt Count 133 L (150-450) k/uL Neutrophils # 11.3 H (1.3-7.7) k/uL Lymphocytes # 0.8 L (1.0-4.8) k/uL BUN 25 H (9-20) mg/dL Creatinine 1.44 H (0.66-1.25) mg/dL Calcium 8.1 L (8.4-10.2) mg/dL
[2023-03-17] MEDS: IPRATROPIUM-ALBUTEROL 3 ML NEB INHALATION SCH ×4 (07:47→21:56)
[2023-03-17 07:49] LABS: Basophils % (A) 0 %; Eosinophils # (A) 0.3 k/uL (0-0.7); Eosinophils % (A) 3 %; HCT 38.2 % (39.0-53.0); HGB 12.3 gm/dL (13.0-17.5); Lymphocytes # (A) 0.6 k/uL (1.0-4.8); Lymphocytes % (A) 6 %; MCH 29.7 pg (25.0-35.0); MCHC 32.2 g/dL (31.0-37.0); MCV 92.2 fL (80.0-100.0); Mean Platelet Volume 9.4; Monocytes # (A) 0.5 k/uL (0-1.0); Monocytes % (A) 6 %; Neutrophils # (A) 7.1 k/uL (1.3-7.7); Neutrophils % (A) 81 %; Platelet Count 151 k/uL (150-450); RBC 4.14 m/uL (4.30-5.90); RDW 14.2 % (11.5-15.5); WBC 8.8 k/uL (3.8-10.6)
[2023-03-17 08:08] LABS: African American GFR (CKD) 53 (>60 ml/min/1.73 sqM); Anion Gap 6 mmol/L; Blood Urea Nitrogen 21 mg/dL (9-20); Calcium 8.2 mg/dL (8.4-10.2); Carbon Dioxide 27 mmol/L (22-30); Chloride 107 mmol/L (98-107); Glucose 102 mg/dL (74-99); Magnesium 1.9 mg/dL (1.6-2.3); Non-African American GFR(CKD) 46 (>60 ml/min/1.73 sqM); Potassium 3.8 mmol/L (3.5-5.1); Sodium 140 mmol/L (137-145)
--- NOTE | 2023-03-17 08:34 | CA ---
Transthoracic Echo Report Name: Jeramy Lara Age: 83 Gender: M : 1940 Exam Date: 03/16/2023 08:27 Exam Location: [place] [facility] Ht (in): 67 Wt (lb): 197 Ordering Physician: Shalonda Correia MD Attending/Referring Phys: Process Assistant Tiffany Doss [facility] Procedure CPT: Indications: chg Cardiac Hx: Technical Quality: Technically difficult study Contrast 1: Total Dose (mL): Contrast 2: Total Dose (mL): MEASUREMENTS (Male / Female) Normal Values 2D ECHO LV Diastolic Diameter PLAX 4.5 cm 4.2 - 5.9 / 3.9 - 5.3 cm LV Systolic Diameter PLAX 3.6 cm IVS Diastolic Thickness 1.1 cm 0.6 - 1.0 / 0.6 - 0.9 cm LVPW Diastolic Thickness 1.2 cm 0.6 - 1.0 / 0.6 - 0.9 cm LV Relative Wall Thickness 0.5 LVOT Diameter 2.1 cm Ascending Aorta Diameter 3.7 cm M-MODE Aortic Root Diameter MM 2.4 cm LA Systolic Diameter MM 4.0 cm LA Ao Ratio MM 1.6 AV Cusp Separation MM 2.1 cm DOPPLER AV Peak Velocity 92.7 cm/s AV Peak Gradient 3.4 mmHg AV Mean Velocity 66.3 cm/s AV Mean Gradient 1.9 mmHg AV Velocity Time Integral 20.4 cm LVOT Peak Velocity 91.9 cm/s LVOT Peak Gradient 3.4 mmHg LVOT Velocity Time Integral 19.8 cm LVOT Stroke Volume 66.5 cm??? LVOT Stroke Volume Index 33.1 ml/m??? LVOT Cardiac Index 2108.1 cm???/min???m??? AV Area Cont Eq vti 3.3 cm??? AV Area Cont Eq pk 3.3 cm??? Mitral E Point Velocity 56.5 cm/s Mitral A Point Velocity 79.6 cm/s Mitral E to A Ratio 0.7 MV Deceleration Time 250.0 ms LV E' Lateral Velocity 8.0 cm/s Mitral E to LV E' Lateral Ratio 7.1 LV E' Septal Velocity 6.8 cm/s Mitral E to LV E' Septal Ratio 8.3 TR Peak Velocity 204.3 cm/s TR Peak Gradient 16.7 mmHg Right Atrial Pressure 3.0 mmHg Pulmonary Artery Systolic Pressu 19.7 mmHg Right Ventricular Systolic Press 19.7 mmHg FINDINGS Left Ventricle Left ventricle not well visualized. Mildly increased septal wall thickness. Left ventricular cavity size normal. Left ventricular ejection fraction is estimated at 55-60%. Right Ventricle Right ventricle not well visualized. Right Atrium Right atrium not well visualized. Left Atrium Mild left atrial dilatation. Mitral Valve Structurally normal mitral valve. Mild mitral regurgitation. Aortic Valve Trileaflet aortic valve. Diffuse thickening (sclerosis) of the aortic valve cusps without reduced excursion. Mild aortic regurgitation. Tricuspid Valve Tricuspid valve not well visualized. Mild tricuspid regurgitation. Pulmonic Valve Pulmonic valve not well visualized. Moderate pulmonic regurgitation. Pericardium No pericardial effusion. Aorta Normal size aortic root. Ascending aorta at upper limits of normal. CONCLUSIONS Technically difficult study. Normal global LV systolic function. Estimated EF 55-60% No obvious regional wall motion abnormality Mild aortic sclerosis. Mild aortic regurgitation and mild mitral regurgitation No pericardial effusion No prior echo to compare with Previewed by: Dr Nahun Dailey (Electronically Signed) Final Date: 16 March 2023 14:55
[2023-03-17] MEDS: ATORVASTATIN 40 MG TAB PO SCH (08:46)
[2023-03-17] MEDS: APIXABAN 2.5 MG TABLET PO SCH ×2 (08:46→20:36)
[2023-03-17] MEDS: METOPROLOL TARTRATE 12.5 MG TAB PO SCH (08:46)
[2023-03-17] MEDS: ASPIRIN 81 MG PO SCH (08:46)
[2023-03-17] MEDS: polyethylene glycoL 3350 17 GM POWD.PACK PO SCH (08:46)
--- NOTE | 2023-03-17 13:22 | P.PN ---
Subjective Progress Note Date: 03/17/23 I am seeing this patient in consultation today 03/15/2023 after he was transferred from [facility] yesterday for suspected sepsis. Patient is an 83 -year-old white male with past medical history significant for coronary artery disease status post CABG with subsequent stenting, hyperlipidemia, hype rtension, AAA, atrial fibrillation, CVA with left-sided hemiparesis, esophageal strictures, and dysphagia. Patient also had a recent prolonged stay at [facility] for bowel obstruction, but did not require surgical intervention. Patient reports generalized weakness, fever, difficulties urinating including frequency and urgency that started on Wednesday. He did have a fall 1 week ago. UA at outside facility was concerning for UTI. Reportedly had a T-max of 102F. There was also a component of acute kidney injury. No reported gastrointestinal complaints. He also is reporting some shortness of breath and occasional nonproductive cough. There are concerns about possible aspiration. Denies history of COPD or asthma. Denies sick contacts. Negative for influenza, RSV, COVID-19. Patient is currently sitting up in bed, on 2 L/m nasal cannula, in no acute distress. A follow-up chest x-ray at our facility shows borderline cardiomegaly, and interstitial prominence consistent with mild pulmonary vascular congestion. There was a possible small left pleural effusion with adjacent atelectasis and/or consolidation. A follow-up chest CTA was negative for any large central pulmonary embolism. It did show extensive bilateral posterior opacities thought to be atelectasis without pleural effusion or obvious focal consolidation. CBC on arrival shows leukocytosis with a WBC count of 21, hemoglobin 13.3, hematocrit 41, platelets 145. BMP shows a sodium 140, potassium 3.5, chloride 105, serum bicarb 27, BUN 28, creatinine 1.6, glucose 103. Troponins are elevated at 0.99, 1.3, and 1.29. NT proBNP was 1750. No IV maintenance fluids infusing. Currently on a combination of azithromycin and Zosyn. Patient is currently afebrile. Appears nontoxic, and vital signs are stable at this time. Patient was reevaluated today on 03/16/2023, feeling better, nonetheless continues to have some intermittent cough, his cough is relatively chronic in nature, patient remains on antibiotics in the form of Zosyn, seen by infectious disease and Zosyn. Cultures of Blood and Urine Are Pending and No Sputum Cultures Have Been Sent. His Pro-Calcitonin Level Was Elevated. WBC Count Is down Today to 13.7 from 18.7 the Rest of the Labs Are Unremarkable Renal Profile Remains Abnormal with Creatinine of 1.44, It Was 1.46 Yesterday. Admission Creatinine Was 1.60 The patient is seen today 03/17/2023 in follow-up on the selective care unit. He is currently resting comfortably in bed. Awake and alert in no acute distress. Maintaining good O2 saturations in the 90s on room air. States feel ing about the same today as compared to yesterday. Urine culture revealed no growth. White count 8.8. Hemoglobin 12.3. Platelets 151. Sodium 140. Potassium 3.8. Bicarb 27. BUN 21. Creatinine 1.39. He is continued on Zosyn, bronchodilators. Anticoagulated with Eliquis. Objective - Vital Signs Vital signs: Vital Signs Temp 98.2 F 03/17/23 12:00 Pulse 73 03/17/23 12:57 Resp 18 03/17/23 12:57 BP 157/74 03/17/23 12:00 Pulse Ox 91 L 03/17/23 12:00 FiO2 Intake & Output 03/16/23 03/17/23 03/17/23 18:59 06:59 18:59 Intake Total 280 198 Output Total 600 400 200 Balance -320 -400 -2 Intake: Oral 280 198 Output: Urine 600 400 200 Other: Voiding Method Urinal Urinal Urinal # Voids 1 # Bowel Movements 1 1 - Exam Physical Exam: Revealed an 83-year-old male, alert, on room air, in no distress Head: Atraumatic, normocephalic. HEENT:Neck is supple. No neck masses. No thyromegaly. No JVD. Chest: Diminished breath sounds and crackles at the left base and to some extent at the right base. Cardiac Exam: Normal S1 and S2, no S3 gallop, no murmur. Abdomen: Soft, nontender, no megaly, no rebound, no guarding, normal bowel sounds. Extremities: No clubbing, no edema, no cyanosis. Neurological Exam: Left sided hemiparesis is noted with weakness noted in the left upper extremity 3/5 and left lower extremity 2/5 with left facial drawing droop related to previous CVA. Psychiatric: Normal mood, affect and normal mental status examination. Skin: No rashes. - Labs CBC & Chem 7: 03/17/23 07:19 03/17/23 07:19 Labs: Abnormal Lab Results - Last 24 Hours (Table) 03/17/23 03/17/23 Range/Units 07:19 07:19 RBC 4.14 L (4.30-5.90) m/uL Hgb 12.3 L (13.0-17.5) gm/dL Hct 38.2 L (39.0-53.0) % Lymphocytes # 0.6 L (1.0-4.8) k/uL BUN 21 H (9-20) mg/dL Creatinine 1.39 H (0.66-1.25) mg/dL Glucose 102 H (74-99) mg/dL Calcium 8.2 L (8.4-10.2) mg/dL Microbiology - Last 24 Hours (Table) 03/15/23 22:03 Urine Culture - Final Urine,Voided Assessment and Plan Assessment: Acute hypoxemic respiratory failure suspect aspiration pneumonia/recurrent, improved and on room air. Pro calcitonin 23.9 Leukocytosis, secondary to above Sepsis secondary to above Acute kidney injury, creatinine 1.39 Elevated troponins, likely supply/demand mismatch Left lower extremity edema Elevated d-dimer, chest CTA shows no evidence of large central pulmonary embolism Ascending aortic aneurysm, measuring 3.9 cm on chest CTA Coronary artery disease, status post CABG with subsequent PCI and stenting Hyperlipidemia Benign essential hypertension Obesity, BMI of 31 Remote history of CVA with residual left-sided hemiparesis History of atrial fibrillation, currently in normal sinus rhythm. Anticoagulated on Eliquis History of bowel obstruction History of esophageal strictures and dysphagia Remote ex-smoker Plan: The patient was seen and evaluated Labs and medications reviewed Remains on Zosyn Anticoagulated with Eliquis Follow-up chest x-ray in a.m. Discharge planning is in place We will continue to follow I have personally seen and examined the patient, performed the documentation and the assessment and plan as written. Number of minutes spent on the visit: 10.
[2023-03-17] MEDS: SODIUM CHLORIDE 0.9% 1,000 ML IV SCH (13:41)
--- NOTE | 2023-03-17 14:19 | P.PN ---
Subjective Progress Note Date: 03/17/23 History of present illness: This is an 83-year-old male patient with past medical history of coronary artery disease status post CABG in 1988 the [facility], status post multiple stents,paroxysmal atrial fibrillation on eliquis, hypertension, orthostatic hypotension, hyperlipidemia, history of CVA with left-sided weakness. 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 By the evening he was feeling improvement about his symptoms had resolved. Wednesday he woke up and he couldn't get out of bed due to weakness, feeling tired. He still felt that he could not even walk. He was transported by ambulance to [facility] he was evaluated and subsequently transferred to [facility]. EKG sinus rhythm Chest x-ray:borderline cardiomegaly. Hypoventilatory changes. Interstitial pro minence consistent with mild pulmonary vascular congestion. Small left effusion with adjacent atelectasis and/or consolidation. CTA of the chest revealed extensive breathing motion artifact. No obvious pulmonary embolus, and many of the segmental and more distal fractures on the right are nondiagnostic and emboli cannot be excluded. Extensive posterior opacities and groundglass suspect extensive dependent and generalized atelectasis. No pleural effusions or definite acute process. Mild card iomegaly, CAD, pulmonary artery hypertension. Correlate for underlying mild CHF. WBC initially 20.8 now 18.7, hemoglobin 12.7, platelet count 137. INR 1.0. D- dimer 1.05. Electrolytes normal, BUN 30 creatinine 1.46. Troponins 0.992, 1.3, 1.29. Pro-calcitonin 23.9. Influenza A, influenza B, RSV, Covid 19 not detected. Home cardiac medications: Eliquis 2.5 mg twice daily, aspirin 81 mg daily, Lipitor 40 mg daily, Florinef 0.1 mg every 48 hours, Lasix 40 mg daily, magnesium oxide 400 mg daily, Procardia XL 60 milligrams daily, potassium chloride 20 mEq daily, sotalol 80 mg twice daily. Echocardiogram 2020performed at [facility] revealed normal EF 55-60%, aortic sclerosis, mild AR, moderate left ventricular hypertrophy, right ventricular is mildly dilated, grade 2 diastolic dysfunction, probably mildly enlarged. Holter monitor 2017 normal Stress test 2017 small area of apical ischemia with EF of 52%. Cardiac catheterization 2011 chronically occluded CABG 20. Patent MELENDEZ to LAD with 100% chronic total occlusion of the mid LAD beyond the graft insertion site, Patent stent in the proximal MELENDEZ to LAD, patent stent in the left main into ramus. 03/16 Patient is seen today in follow-up. He is sitting in recliner appears to be comfortable. He states his breathing is improved. He denies having any chest pain or pressure. His blood pressure is elevated with systolic 160 to 180s over 82, heart rate is running in the 60s and 70s. Pulse ox is 97% on 3 L. Repeat blood work reveals improvement of leukocytosis with WBC 13.7, hemoglobin 12.3 and platelet count 133. Electrolytes are normal. BUN 25 creatinine 1.44. Urinalysis positive for infection. Echocardiogram is pending. 03/17 Patient denies having any chest pain. He continues treatment for sepsis. Heart rate is running in the 70s, blood pressure 157/74, pulse ox 91% on room air. Repeat blood work reveals WBC 8.8, troponin 12.3. Electrolytes are normal. BUN 21 creatinine 1.39. Echocardiogram reveals EF of 55-60%, mild aortic sclerosis, mild aortic regurgitation and mild mitral regurgitation. Technically difficult study. Physical examination: Gen: This is an 83-year-old male appears comfortable. No acute distress. VS: reviewed HEENT: Head is atraumatic, normocephalic. Pupils equal, round. Sclerae is anicteric. NECK: Supple. No JVD. LUNGS: Clear to auscultation. No wheezes or rhonchi. No intercostal retractions. HEART: Regular rate and rhythm. ABDOMEN: Soft No tenderness. EXTREMITIES: 2+ pedal edema. No calf tenderness. NEUROLOGICAL: Patient is awake, alert and oriented x3. Assessment: NSTEMI Sepsis secondary to UTI, possible pneumonia less likely CAD s/p CABG AFib, paroxysmal HTN HLD CVA Plan: Continue current cardiac medications Plan for conservative management Continue treatment for sepsis Further recommendations to follow based upon clinical course Thank you kindly for this consultation. Nurse practitioner note has been reviewed, I agree with documented findings and plan of care. Patient was seen and examined. Objective - Vital Signs Vital signs: Vital Signs Temp 98 F 03/17/23 08:00 Pulse 70 03/17/23 11:36 Resp 20 03/17/23 08:00 BP 195/82 03/17/23 08:00 Pulse Ox 99 03/17/23 11:39 FiO2 Intake & Output 03/16/23 03/17/23 03/17/23 18:59 06:59 18:59 Intake Total 280 118 Output Total 600 400 Balance -320 -400 118 Intake: Oral 280 118 Output: Urine 600 400 Other: Voiding Method Urinal Urinal Urinal # Voids 1 # Bowel Movements 1 - Labs CBC & Chem 7: 03/17/23 07:19 03/17/23 07:19 Labs: Abnormal Lab Results - Last 24 Hours (Table) 03/17/23 03/17/23 Range/Units 07:19 07:19 RBC 4.14 L (4.30-5.90) m/uL Hgb 12.3 L (13.0-17.5) gm/dL Hct 38.2 L (39.0-53.0) % Lymphocytes # 0.6 L (1.0-4.8) k/uL BUN 21 H (9-20) mg/dL Creatinine 1.39 H (0.66-1.25) mg/dL Glucose 102 H (74-99) mg/dL Calcium 8.2 L (8.4-10.2) mg/dL Microbiology - Last 24 Hours (Table) 03/15/23 22:03 Urine Culture - Final Urine,Voided
[2023-03-17] MEDS: MELATONIN 5 MG TABLET PO SCH (20:36)
[2023-03-18] MEDS: PIPERACILLIN-TAZOBACTAM 3.375 GM in SODIUM CHLORIDE 0.9% 100 ML IVPB SCH ×2 (00:08→08:51)
--- NOTE | 2023-03-18 06:20 | P.PN ---
Subjective Progress Note Date: 03/17/23 This is a 83-year-old male who was recently admitted from [facility] for further evaluation with concerns of possible acute urinary tract infection being closely monitored. Patient also had elevated troponins possible acute nstemi and report to having some coughing after eating with concerns of aspiration pneumonia. Patient started on antibiotics and gentle IV hydration with infectious disease on consult. Patient with significant weakness although reports is chronically weak from previous stroke would recommend physical therapy evaluation. Speech to evaluate as well. Would continue with aspiration precautions and head of the bed elevated 30-45 at all times. Patient is currently afebrile with no reports of chest pain or palpitations. No reported worsening shortness of breath all the patient continues with cough 03/16/2023 Patient is seen and evaluated in follow-up this morning currently sitting up in the chair. Patient reports he worked with physical therapy who got him up to the chair. Patient with significant weakness considering possibly ECF. Patient is continued on antibiotics with infectious disease following and would recommend aspiration precautions with head of bed elevated 30-45 and superficial with meals. Patient was seen and evaluated by speech continued on current diet. Repeat blood cultures pending. WBC is trending down and patient is afebrile. PT is maintained on 3 L via nasal cannula and reports does not normally wear oxygen outpatient. Encouraged increase activity as tolerated. Will also add incentive spirometer. 03/17/2023 Patient is seen and evaluated in follow-up today currently getting up and walking with physical therapy. Patient appears weak and using a walker with case management following awaiting updated PT notes this patient would like to return home although is agreeable to rehab. Patient also maintained on antibiot ics with infectious disease following as well as pulmonary. Patient's respiratory status is improving and weaning FiO2 as tolerated. Patient does not normally wear oxygen in the outpatient setting. Patient is afebrile and thus far cultures including blood and urine are negative. Will discuss further with infectious disease about possible discharge planning and antibiotics. Review of systems: Constitutional: No reports of fatigue, reported previous fever, or chills Cardiovascular: No reports of chest pain or palpitations Respiratory: reports of shortness of breath with cough, feeling somewhat improved GI: No reports of nausea, no reports of vomiting, no diarrhea, reports bowel movements : No reports of dysuria or retention Neurovascular: reports of generalized weakness All medications have been reviewed PHYSICAL EXAMINATION: GENERAL: The patient is alert and oriented x4, awake, Well developed, well nourished. Obese HEENT: Pupils are round and equally reacting to light. EOMI. no scleral icterus. No conjunctival pallor. Normocephalic, atraumatic. No pharyngeal erythema. No thyromegaly. CARDIOVASCULAR: S1 and S2 muffled PULMONARY: diminished breath sounds bilaterally with no wheezing or rhonchi noted. ABDOMEN: soft. Nontender on exam. obese. non-distended, normoactive bowel sounds. No palpable organomegaly. MUSCULOSKELETAL: No joint swelling or deformity. EXTREMITIES: No cyanosis, clubbing, or pedal edema. NEUROLOGICAL: Gross neurological examination did not reveal any focal deficits. Diffuse weakness SKIN: No rashes. Assessment: Bibasilar pneumonia with possible sepsis, present on admission with concerns of possible aspiration pneumonia Possible acute urinary tract infection, present on admission Troponin 1.60 with acute nstemi Acute renal failure possibly secondary to dehydration History of atrial fibrillation History of congestive heart failure, unknown EF History of hypertension History of hyperlipidemia History of CVA/TIA Obesity with a BMI of 30.9 GI prophylaxis DVT prophylaxis Full code Plan: Recommend to continue with current medications and management with consultations following Infectious disease along with pulmonary following maintained on breathing treatments along with IV antibiotics. Urine and blood cultures thus far are negative and will discuss further with ID about possible discharge planning and antibiotics Patient with concerns of possible aspiration and would recommend aspiration precautions with head of the bed elevated 30-45 at all times and supervision with meals Pro-calcitonin was elevated and will continue with antibiotic therapy per ID recommendations. Awaiting cultures Patient with significant weakness with history of CVA would recommend physical therapy evaluation. Awaiting updated PT/OT therapy notes for possible rehab versus home with home care Will follow-up with repeat labs and continue to monitor closely Due to multiple complex medical issues, prognosis is guarded possible discharge planning in the next 24-48 hours The impression and plan of care has been dictated by Courtney Temple nurse practitioner as directed. Dr. Isela MD I have performed a history and examination and MDM of this patient, discussed the same with the dictator, and agree with the dictator's assessment and plan as written ,documented as a scribe. Based on total visit time, I have performed more than 50% of the visit. Any additional findings or plans will be noted. Objective - Vital Signs Vital signs: Vital Signs Temp 98.4 F 03/18/23 04:00 Pulse 83 03/18/23 04:00 Resp 17 03/18/23 04:00 BP 135/72 03/18/23 04:00 Pulse Ox 92 L 03/18/23 04:00 FiO2 Intake & Output 03/17/23 03/17/23 03/18/23 06:59 18:59 06:59 Intake Total 198 Output Total 400 225 100 Balance -400 -27 -100 Intake: Oral 198 Output: Urine 400 225 100 Other: Voiding Method Urinal Urinal Urinal # Voids 1 # Bowel Movements 1 1 - Labs CBC & Chem 7: 03/17/23 07:19 03/17/23 07:19 Labs: Abnormal Lab Results - Last 24 Hours (Table) 03/17/23 03/17/23 Range/Units 07:19 07:19 RBC 4.14 L (4.30-5.90) m/uL Hgb 12.3 L (13.0-17.5) gm/dL Hct 38.2 L (39.0-53.0) % Lymphocytes # 0.6 L (1.0-4.8) k/uL BUN 21 H (9-20) mg/dL Creatinine 1.39 H (0.66-1.25) mg/dL Glucose 102 H (74-99) mg/dL Calcium 8.2 L (8.4-10.2) mg/dL Microbiology - Last 24 Hours (Table) 03/16/23 13:59 Blood Culture - Preliminary Blood 03/15/23 22:03 Urine Culture - Final Urine,Voided
[2023-03-18] MEDS: PANTOPRAZOLE 40 MG TABLET PO SCH (06:39)
--- NOTE | 2023-03-18 07:50 | XR ---
EXAMINATION TYPE: XR chest 1V portable DATE OF EXAM: 03/18/2023 HISTORY: Shortness of breath. COMPARISON: 03/14/2023 TECHNIQUE: Single view of the chest is submitted. FINDINGS: Demonstrated are scattered senescent parenchymal change. Increased patchy basilar density is unchanged. Calcified granuloma left lower lobe. The heart is stable. Hilar and mediastinal structures are within normal limits. Degenerative changes are seen of the dorsal spine. IMPRESSION: 1. Stable chest.
[2023-03-18] MEDS: IPRATROPIUM-ALBUTEROL 3 ML NEB INHALATION SCH ×3 (08:43→16:34)
[2023-03-18] MEDS: METOPROLOL TARTRATE 12.5 MG TAB PO SCH (08:52)
[2023-03-18] MEDS: polyethylene glycoL 3350 17 GM POWD.PACK PO SCH (08:52)
[2023-03-18] MEDS: ASPIRIN 81 MG PO SCH (08:53)
[2023-03-18] MEDS: APIXABAN 2.5 MG TABLET PO SCH (08:53)
[2023-03-18] MEDS: ATORVASTATIN 40 MG TAB PO SCH (08:53)
[2023-03-18 09:32] LABS: African American GFR (CKD) 56 (>60 ml/min/1.73 sqM); Anion Gap 8 mmol/L; Blood Urea Nitrogen 16 mg/dL (9-20); Calcium 8.4 mg/dL (8.4-10.2); Carbon Dioxide 24 mmol/L (22-30); Chloride 108 mmol/L (98-107); Glucose 95 mg/dL (74-99); Magnesium 1.8 mg/dL (1.6-2.3); Non-African American GFR(CKD) 49 (>60 ml/min/1.73 sqM); Sodium 140 mmol/L (137-145)
[2023-03-18 11:11] VITALS: RESP 16
--- NOTE | 2023-03-18 13:17 | P.PN ---
Subjective Progress Note Date: 03/18/23 I am seeing this patient in consultation today 03/15/2023 after he was transferred from [facility] yesterday for suspected sepsis. Patient is an 83 -year-old white male with past medical history significant for coronary artery disease status post CABG with subsequent stenting, hyperlipidemia, hype rtension, AAA, atrial fibrillation, CVA with left-sided hemiparesis, esophageal strictures, and dysphagia. Patient also had a recent prolonged stay at [facility] for bowel obstruction, but did not require surgical intervention. Patient reports generalized weakness, fever, difficulties urinating including frequency and urgency that started on Wednesday. He did have a fall 1 week ago. UA at outside facility was concerning for UTI. Reportedly had a T-max of 102F. There was also a component of acute kidney injury. No reported gastrointestinal complaints. He also is reporting some shortness of breath and occasional nonproductive cough. There are concerns about possible aspiration. Denies history of COPD or asthma. Denies sick contacts. Negative for influenza, RSV, COVID-19. Patient is currently sitting up in bed, on 2 L/m nasal cannula, in no acute distress. A follow-up chest x-ray at our facility shows borderline cardiomegaly, and interstitial prominence consistent with mild pulmonary vascular congestion. There was a possible small left pleural effusion with adjacent atelectasis and/or consolidation. A follow-up chest CTA was negative for any large central pulmonary embolism. It did show extensive bilateral posterior opacities thought to be atelectasis without pleural effusion or obvious focal consolidation. CBC on arrival shows leukocytosis with a WBC count of 21, hemoglobin 13.3, hematocrit 41, platelets 145. BMP shows a sodium 140, potassium 3.5, chloride 105, serum bicarb 27, BUN 28, creatinine 1.6, glucose 103. Troponins are elevated at 0.99, 1.3, and 1.29. NT proBNP was 1750. No IV maintenance fluids infusing. Currently on a combination of azithromycin and Zosyn. Patient is currently afebrile. Appears nontoxic, and vital signs are stable at this time. Patient was reevaluated today on 03/16/2023, feeling better, nonetheless continues to have some intermittent cough, his cough is relatively chronic in nature, patient remains on antibiotics in the form of Zosyn, seen by infectious disease and Zosyn. Cultures of Blood and Urine Are Pending and No Sputum Cultures Have Been Sent. His Pro-Calcitonin Level Was Elevated. WBC Count Is down Today to 13.7 from 18.7 the Rest of the Labs Are Unremarkable Renal Profile Remains Abnormal with Creatinine of 1.44, It Was 1.46 Yesterday. Admission Creatinine Was 1.60 The patient is seen today 03/17/2023 in follow-up on the selective care unit. He is currently resting comfortably in bed. Awake and alert in no acute distress. Maintaining good O2 saturations in the 90s on room air. States feel ing about the same today as compared to yesterday. Urine culture revealed no growth. White count 8.8. Hemoglobin 12.3. Platelets 151. Sodium 140. Potassium 3.8. Bicarb 27. BUN 21. Creatinine 1.39. He is continued on Zosyn, bronchodilators. Anticoagulated with Eliquis. The patient is seen today 03/18/2023 in follow-up on the selective care unit. He is sitting up in a chair at the bedside. Awake and alert in no acute distress. He denies any worsening shortness of breath, cough or congestion. Maintaining O2 saturations in the 90s on room air. Chest x-ray shows stable patchy basilar infiltrates. Also by granuloma left lower lobe. Stable compared to previous. Sodium 140. Potassium 4.0. Bicarb 24. BUN 16. Creatinine 1.33. Glucose 95. He is continued on Zosyn, bronchodilators. Anticoagulated with Eliquis. Objective - Vital Signs Vital signs: Vital Signs Temp 98.7 F 03/18/23 08:00 Pulse 72 03/18/23 12:21 Resp 16 03/18/23 08:00 BP 147/80 03/18/23 08:00 Pulse Ox 95 03/18/23 08:43 FiO2 Intake & Output 03/17/23 03/18/23 03/18/23 18:59 06:59 18:59 Intake Total 198 Output Total 225 100 100 Balance -100 -100 Intake: Oral 198 Output: Urine 225 100 100 Other: Voiding Method Urinal Urinal Urinal # Voids 1 1 # Bowel Movements 1 1 1 - Exam Physical Exam: Revealed a pleasant 83-year-old male, sitting up in a chair, alert, on room air, in no distress Head: Atraumatic, normocephalic. HEENT:Neck is supple. No neck masses. No thyromegaly. No JVD. Chest: Diminished breath sounds and crackles at the left base and to some extent at the right base. Cardiac Exam: Normal S1 and S2, no S3 gallop, no murmur. Abdomen: Soft, nontender, no megaly, no rebound, no guarding, normal bowel ananya nds. Extremities: No clubbing, no edema, no cyanosis. Neurological Exam: Left sided hemiparesis is noted with weakness noted in the left upper extremity 3/5 and left lower extremity 2/5 with left facial drawing droop related to previous CVA. Psychiatric: Normal mood, affect and normal mental status examination. Skin: No rashes. - Labs CBC & Chem 7: 03/17/23 07:19 03/18/23 07:40 Labs: Abnormal Lab Results - Last 24 Hours (Table) 03/18/23 Range/Units 07:40 Chloride 108 H (98-107) mmol/L Creatinine 1.33 H (0.66-1.25) mg/dL Microbiology - Last 24 Hours (Table) 03/16/23 13:59 Blood Culture - Preliminary Blood 03/15/23 22:03 Urine Culture - Final Urine,Voided Assessment and Plan Assessment: Acute hypoxemic respiratory failure suspect aspiration pneumonia/recurrent, improved and on room air. Leukocytosis, secondary to above Sepsis secondary to above Acute kidney injury, creatinine 1.33 Elevated troponins, likely supply/demand mismatch Left lower extremity edema Elevated d-dimer, chest CTA shows no evidence of large central pulmonary embolism Ascending aortic aneurysm, measuring 3.9 cm on chest CTA Coronary artery disease, status post CABG with subsequent PCI and stenting Hyperlipidemia Benign essential hypertension Obesity, BMI of 31 Remote history of CVA with residual left-sided hemiparesis History of atrial fibrillation, currently in normal sinus rhythm. Anticoagulated on Eliquis History of bowel obstruction History of esophageal strictures and dysphagia Remote ex-smoker Plan: The patient was seen and evaluated Chest x-ray, labs and medications reviewed Discontinued Zosyn Recommend Augmentin 5 more days Cleared for discharge from the pulmonary standpoint Plan is for home with home care I have personally seen and examined the patient, performed the documentation and the assessment and plan as written. Number of minutes spent on the visit: 10.
[2023-03-18 13:41] VITALS: BP 166/78; TEMP 98.6
[2023-03-18] MEDS: MAGNESIUM SULFATE-D5W PMX 1 GM in DEXTROSE/WATER 1 100ML.BAG IVPB SCH ×2 (14:03→15:12)
[2023-03-18 16:46] VITALS: PULSE 68
[2023-03-18] MEDS ORDERED: AMOXIC-POT CLAV 875-125MG 1 EACH TAB PO SCH (21:00)
--- NOTE | 2023-03-19 09:17 | CDI ---
Documentation Clarification Form Date: 03/19/23 From: Juliana Doe Admit Date: 03/14/2023 02:51:00 PM Patient Name: Jeramy Lara Visit Number: [id number] Discharge Date: 03/18/2023 05:03:00 PM ATTENTION: The Clinical Documentation Specialists (CDI) and [facility] Coding Staff appreciate your assistance in clarifying documentation. Please respond to the clarification below the line at the bottom and electronically sign. The CDI & [facility] Coding staff will review the response and follow-up if needed. Please note: Queries are made part of the Legal Health Record. If you have any questions, please contact the author of this message via ITS. Dr. Shalonda Correia, Your patient has the documented diagnosis of unspecified CHF in ED Note, H&P & PNs. Additional information regarding the [type, acuity] of CHF is requested. History/Risk Factors: coronary artery diseasestatus post CABG, multiple cardiac stents, paroxysmal atrial fibrillation Clinical Indications: NSTEMI, borderline cardiomegaly VS/Pulse OX: T 98.3, P 78, R 20/22, BP 87/41, O2Sat 93 (O2 2 L) BNP: 750 Echocardiogram Results: Left ventricle not well visualized. Mildly increased septal wall thickness. Left ventricularcavitysize normal. Left ventricular ejection fraction is estimated at 55-60%. 03/14 Chest X Ray: Borderlinecardiomegaly. Hypoventilatory changes.Interstitial prominence consistent with mild pulmonary vascularcongestion. Treatment: echo and Doppler study, add low dose BB Lopressor 12.5 mg daily, oral Lasix 40 mg daily In your professional opinion, can you please clarify the [acuity and type] of CHF if known? [ ] Chronic Systolic Heart Failure (reduced EF) [ x ] Chronic Diastolic Heart Failure (preserved EF) [ ] Chronic Systolic & Diastolic Heart Failure [ ] Other, please specify [ ] Unable to determine MTDD
--- NOTE | 2023-03-19 12:53 | P.DS ---
Providers Date of admission: 03/14/23 14:51 Expected date of discharge: 03/18/23 Attending physician: Shalonda Correia Consults: 03/14/23 17:42 Consult Physician Routine Consulting Provider: Meghann May Consult Reason/Comments: sepsis Do you want consulting provider notified?: Yes 03/14/23 17:43 Consult Physician Routine Consulting Provider: Liliana Melchor Consult Reason/Comments: pneumonia Do you want consulting provider notified?: Yes Consult Physician Routine Consulting Provider: Cristy Eduardo Consult Reason/Comments: chf Do you want consulting provider notified?: Yes Primary care physician: Bassam Kraft [facility] Course: Final diagnosis Bibasilar pneumonia with possible sepsis, present on admission with concerns of possible aspiration pneumonia Possible acute urinary tract infection, present on admission Troponin 1.60 with acute nstemi Acute renal failure possibly secondary to dehydration History of atrial fibrillation History of congestive heart failure, diastolic with preserved EF History of hypertension History of hyperlipidemia History of CVA/TIA Obesity with a BMI of 30.9 GI prophylaxis DVT prophylaxis Full code Discharge disposition Patient is being discharged in a stable condition with guarded prognosis to home with home care. Patient will follow-up with primary care provider in the outpatient setting upon discharge. Patient is to continue with IV antibiotics and has received a midline and close outpatient follow-up with infectious disease as scheduled. Total time taken is greater than 35 minutes. Hospital course This is a 83-year-old male who was recently admitted with bibasilar pneumonia with recurrent aspiration pneumonia with concerns of sepsis, present on admission. Patient was at [facility] and sent here for further evaluation and workup. Multiple medical consultations following. Patient had some improvement and initial blood cultures at [place] were showing E. coli. Recent blood and urine cultures are negative and will receive a midline and continue with antibiotics per ID recommendations for 10 days. Patient will be going home with home care. Patient has been cleared by consultations for discharge. Strongly recommend aspiration precautions and supervision with meals and close outpatient follow-up with primary care provider this week. Please refer to consultation notes for further HPI. Currently no reports of chest pain, shortness of breath, or palpitations. Patient is afebrile. No reports of nausea or vomiting and patient is tolerating diet. Patient will be discharged home today. Guarded prognosis and high risk for readmissions given patient's significant comorbidities. Physical exam: Gen: This is a 83-year-old male who is awake, alert and oriented 3, well-developed, well-nourished, obese HEENT: Head is atraumatic, normocephalic. Pupils equal, round. Sclerae is anicteric. NECK: Supple. No JVD. No lymphadenopathy. No thyromegaly. LUNGS: Clear to auscultation. No wheezes or rhonchi. No intercostal retractions. HEART: Regular rate and rhythm. No murmur. ABDOMEN: Soft. Bowel sounds are present. No masses. No tenderness. EXTREMITIES: No pedal edema. No calf tenderness. Left side weakness of the upper and lower extremities noted from previous CVA NEUROLOGICAL: Patient is awake, alert and oriented x3. Cranial nerves 2 through 12 are grossly intact. Diffusely weak Please refer to medication reconciliation sheet for a list of medications. The impression and plan of care has been dictated by Courtney Temple, Nurse Practitioner as directed. Dr. Isela MD I have performed a history and examination and MDM of this patient, discussed the same with the dictator, and agree with the dictator's assessment and plan as written ,documented as a scribe. Based on total visit time, I have performed more than 50% of the visit. Patient Condition at Discharge: Fair Plan - Discharge Summary New Discharge Prescriptions: New Metoprolol Tartrate [Lopressor] 12.5 mg PO DAILY #30 tab Acetaminophen Tab [Tylenol] 650 mg PO Q6HR PRN tab PRN Reason: Mild Pain Or Fever > 100.5 Continue Apixaban [Eliquis] 2.5 mg PO BID Aspirin EC [Ecotrin Low Dose] 81 mg PO DAILY Cetirizine HCl [Zyrtec] 10 mg PO DAILY Magnesium Oxide [Mag-Ox] 400 mg PO DAILY Multivitamins, Thera [Multivitamin (formulary)] 1 tab PO DAILY Pantoprazole [Protonix] 40 mg PO DAILY rOPINIRole HCL [Requip] 0.25 mg PO BID Atorvastatin [Lipitor] 40 mg PO DAILY DULoxetine HCL [Cymbalta] 30 mg PO DAILY Melatonin 5 mg PO HS polyethylene glycoL 3350 [Miralax] 17 gm PO DAILY Discontinued NIFEdipine XL [Procardia XL] 60 mg PO DAILY Sotalol HCl [Sotalol AF] 80 mg PO BID Fludrocortisone Acetate 0.1 mg PO Q48H Furosemide [Lasix] 40 mg PO DAILY Potassium Chloride ER [K-Dur 20] 20 meq PO DAILY Discharge Medication List Apixaban [Eliquis] 2.5 mg PO BID 03/14/23 [History] Aspirin EC [Ecotrin Low Dose] 81 mg PO DAILY 03/14/23 [History] Atorvastatin [Lipitor] 40 mg PO DAILY 03/14/23 [History] Cetirizine HCl [Zyrtec] 10 mg PO DAILY 03/14/23 [History] DULoxetine HCL [Cymbalta] 30 mg PO DAILY 03/14/23 [History] Magnesium Oxide [Mag-Ox] 400 mg PO DAILY 03/14/23 [History] Melatonin 5 mg PO HS 03/14/23 [History] Multivitamins, Thera [Multivitamin (formulary)] 1 tab PO DAILY 03/14/23 [History] Pantoprazole [Protonix] 40 mg PO DAILY 03/14/23 [History] polyethylene glycoL 3350 [Miralax] 17 gm PO DAILY 03/14/23 [History] rOPINIRole HCL [Requip] 0.25 mg PO BID 03/14/23 [History] Acetaminophen Tab [Tylenol] 650 mg PO Q6HR PRN tab 03/18/23 [Rx] Metoprolol Tartrate [Lopressor] 12.5 mg PO DAILY #30 tab 03/18/23 [Rx] Follow up Appointment(s)/Referral(s): Jonathan Loo DO [STAFF PHYSICIAN] - 03/25/23 7:45 am Bassam Castro MD [Primary Care Provider] - 1-2 Days Home [facility] [NON-STAFF] - Patient Instructions/Handouts: Sepsis (DC) Activity/Diet/Wound Care/Special Instructions: Please go to [facility] main desk to check in for IV antibiotc infusions starting tomorrow, 03/19/23 at 2:00PM. All other days will be at 3:00PM infusion time. Continue taking medications as prescribed Follow-up with primary care provider on discharge follow-up with cardiology outpatient in one week Continue holding Lasix therapy and other medications until follow-up in one week Continue with IV antibiotics for the next 10 days Discharge/Stand Alone Forms: Who Do I Call?, Assisted Living Facilities, Help In The Home, [employer] Discharge Disposition: HOME WITH HOME HEALTH SERVICES
--- NOTE | 2023-03-20 15:04 | P.PN ---
Subjective Progress Note Date: 03/18/23 History of present illness: This is an 83-year-old male patient with past medical history of coronary artery disease status post CABG in 1988 the [facility], status post multiple stents,paroxysmal atrial fibrillation on eliquis, hypertension, orthostatic hypotension, hyperlipidemia, history of CVA with left-sided weakness. Patient follows with a produce runner in the [facility].Patient stat es that he developed a fever on Wednesday as well as frequency of urination. By the evening he was feeling improvement about his symptoms had resolved. Wednesday he woke up and he couldn't get out of bed due to weakness, feeling tired. He still felt that he could not even walk. He was transported by ambulance to [facility] he was evaluated and subsequently transferred to [facility]. EKG sinus rhythm Chest x-ray:borderline cardiomegaly. Hypoventilatory changes. Interstitial pro minence consistent with mild pulmonary vascular congestion. Small left effusion with adjacent atelectasis and/or consolidation. CTA of the chest revealed extensive breathing motion artifact. No obvious pulmonary embolus, and many of the segmental and more distal fractures on the right are nondiagnostic and emboli cannot be excluded. Extensive posterior opacities and groundglass suspect extensive dependent and generalized atelectasis. No pleural effusions or definite acute process. Mild card iomegaly, CAD, pulmonary artery hypertension. Correlate for underlying mild CHF. WBC initially 20.8 now 18.7, hemoglobin 12.7, platelet count 137. INR 1.0. D- dimer 1.05. Electrolytes normal, BUN 30 creatinine 1.46. Troponins 0.992, 1.3, 1.29. Pro-calcitonin 23.9. Influenza A, influenza B, RSV, Covid 19 not detected. Home cardiac medications: Eliquis 2.5 mg twice daily, aspirin 81 mg daily, Lipitor 40 mg daily, Florinef 0.1 mg every 48 hours, Lasix 40 mg daily, magnesium oxide 400 mg daily, Procardia XL 60 milligrams daily, potassium chloride 20 mEq daily, sotalol 80 mg twice daily. Echocardiogram 2020performed at [facility] revealed normal EF 55-60%, aortic sclerosis, mild AR, moderate left ventricular hypertrophy, right ventricular is mildly dilated, grade 2 diastolic dysfunction, probably mildly enlarged. Holter monitor 2017 normal Stress test 2017 small area of apical ischemia with EF of 52%. Cardiac catheterization 2011 chronically occluded CABG 20. Patent MELENDEZ to LAD with 100% chronic total occlusion of the mid LAD beyond the graft insertion site, Patent stent in the proximal MELENDEZ to LAD, patent stent in the left main into ramus. 03/16 Patient is seen today in follow-up. He is sitting in recliner appears to be comfortable. He states his breathing is improved. He denies having any chest pain or pressure. His blood pressure is elevated with systolic 160 to 180s over 82, heart rate is running in the 60s and 70s. Pulse ox is 97% on 3 L. Repeat blood work reveals improvement of leukocytosis with WBC 13.7, hemoglobin 12.3 and platelet count 133. Electrolytes are normal. BUN 25 creatinine 1.44. Urinalysis positive for infection. Echocardiogram is pending. 03/17 Patient denies having any chest pain. He continues treatment for sepsis. Heart rate is running in the 70s, blood pressure 157/74, pulse ox 91% on room air. Repeat blood work reveals WBC 8.8, troponin 12.3. Electrolytes are normal. BUN 21 creatinine 1.39. Echocardiogram reveals EF of 55-60%, mild aortic sclerosis, mild aortic regurgitation and mild mitral regurgitation. Technically difficult study. 03/18 Patient is seen today in follow-up. His vital signs have been stable. He denies having any chest pain or shortness of breath, no lightheadedness or dizziness. Heart rate is in the 60s and 70s, blood pressure 166/78, pulse ox 92% on room air. Repeat blood work reveals BUN 16 creatinine 1.33, potassium 4 Physical examination: Gen: This is an 83-year-old male appears comfortable. No acute distress. VS: reviewed HEENT: Head is atraumatic, normocephalic. Pupils equal, round. Sclerae is anicteric. NECK: Supple. No JVD. LUNGS: Clear to auscultation. No wheezes or rhonchi. No intercostal retractions. HEART: Regular rate and rhythm. ABDOMEN: Soft No tenderness. EXTREMITIES: 2+ pedal edema. No calf tenderness. NEUROLOGICAL: Patient is awake, alert and oriented x3. Assessment: NSTEMI Sepsis secondary to UTI, possible pneumonia less likely CAD s/p CABG AFib, paroxysmal HTN HLD CVA Plan: Continue current cardiac medications Plan for conservative management Patient is cleared for discharge from cardiology may follow-up with Dr. Loo in 1 week. Nurse practitioner note has been reviewed, I agree with documented findings and plan of care. Patient was seen and examined. Objective - Vital Signs Vital signs: Vital Signs Temp 98.6 F 03/18/23 12:00 Pulse 84 03/18/23 14:00 Resp 16 03/18/23 14:00 BP 166/78 03/18/23 12:00 Pulse Ox 92 L 03/18/23 12:00 FiO2 Intake & Output 03/17/23 03/18/23 03/18/23 18:59 06:59 18:59 Intake Total 198 Output Total 225 100 100 Balance -27 -100 -100 Intake: Oral 198 Output: Urine 225 100 100 Other: Voiding Method Urinal Urinal Urinal # Voids 1 1 # Bowel Movements 1 1 1 - Labs CBC & Chem 7: 03/17/23 07:19 03/18/23 07:40 Labs: Abnormal Lab Results - Last 24 Hours (Table) 03/18/23 Range/Units 07:40 Chloride 108 H (98-107) mmol/L Creatinine 1.33 H (0.66-1.25) mg/dL Microbiology - Last 24 Hours (Table) 03/16/23 13:59 Blood Culture - Preliminary Blood 03/15/23 22:03 Urine Culture - Final Urine,Voided
--- NOTE | 2023-03-25 22:30 | P.PN ---
Subjective Progress Note Date: 03/17/23 Principal diagnosis: Gram-negative bacteremia and pneumonia Patient is a 83-year-old male with a past medical history significant for atrial fibrillation coronary artery disease heart failure hypertension hyperlipidemia [place] patient presented to [facility] for evaluation of generalized weakness fever and difficulty urination, patient did have CT angiogram of the chest we did show extensive posterior opacities and concern for possible pneumonia, patient blood culture drawn at outside facility came back positive with gram-negative bacilli on today's evaluation and that is 03/17/2023, patient remains to be afebrile, the patient is breathing comfortably on room air, patient denies having any chest pain he can to have a cough unable to bring up any sputum no nausea no vomiting no abdominal pain or diarrhea Objective - Vital Signs Vital signs: Vital Signs Temp 98.2 F 03/17/23 12:00 Pulse 73 03/17/23 12:57 Resp 18 03/17/23 12:57 BP 157/74 03/17/23 12:00 Pulse Ox 91 L 03/17/23 12:00 FiO2 Intake & Output 03/16/23 03/17/23 03/17/23 18:59 06:59 18:59 Intake Total 280 198 Output Total 600 400 200 Balance -320 -400 -2 Intake: Oral 280 198 Output: Urine 600 400 200 Other: Voiding Method Urinal Urinal Urinal # Voids 1 # Bowel Movements 1 1 - Exam GENERAL DESCRIPTION: An elderly male lying in bed in no distress RESPIRATORY SYSTEM: Unlabored breathing , decreased breath sounds at bases HEART: S1 S2 regular rate and rhythm , ABDOMEN: Soft , no tenderness EXTREMITIES: No edema feet - Labs CBC & Chem 7: 03/17/23 07:19 03/18/23 07:40 Labs: Abnormal Lab Results - Last 24 Hours (Table) 03/17/23 03/17/23 Range/Units 07:19 07:19 RBC 4.14 L (4.30-5.90) m/uL Hgb 12.3 L (13.0-17.5) gm/dL Hct 38.2 L (39.0-53.0) % Lymphocytes # 0.6 L (1.0-4.8) k/uL BUN 21 H (9-20) mg/dL Creatinine 1.39 H (0.66-1.25) mg/dL Glucose 102 H (74-99) mg/dL Calcium 8.2 L (8.4-10.2) mg/dL Microbiology - Last 24 Hours (Table) 03/15/23 22:03 Urine Culture - Final Urine,Voided Assessment and Plan (1) Pneumonia Status: Acute Code(s): J18.9 - PNEUMONIA, UNSPECIFIED ORGANISM SNOMED Code(s): 288652758 (2) Sepsis Status: Acute Code(s): A41.9 - SEPSIS, UNSPECIFIED ORGANISM SNOMED Code(s): 94258768 Plan: 1patient presented to the outside facility with fever and weakness with initial concern for possible UTI in this patient who did have a features of sepsis with elevated white count fever patient also have a cough and has been complaining of coughing especially after eating concerning for possible aspiration pneumonia and will need to cover for the polymicrobial monty usually associated with aspiration pneumonia, patient also have elevated procalcitonin 2Patient did have blood culture done outside facility came back positive with gram-negative bacilli, blood cultures will be repeated documented clearance of his bacteremia 3-patient to continue with Zosyn 3.375 g every 8 hours along with aspiration precaution, while waiting for the cultures to finalize Dictation was produced using [employer] dictation software. please excuse any grammatical, word or spelling errors. Time with Patient: Less than 30
--- NOTE | 2023-03-25 22:31 | P.PN ---
Subjective Progress Note Date: 03/18/23 Principal diagnosis: Gram-negative bacteremia and pneumonia Patient is a 83-year-old male with a past medical history significant for atrial fibrillation coronary artery disease heart failure hypertension hyperlipidemia [place] patient presented to [facility] for evaluation of generalized weakness fever and difficulty urination, patient did have CT angiogram of the chest we did show extensive posterior opacities and concern for possible pneumonia, patient blood culture drawn at outside facility came back positive with gram-negative bacilli on today's evaluation and that is 03/18/2023, patient continues to be afebrile, the patient is breathing comfortably on room air, patient denies having any chest pain , the patient denies any worsening cough or sputum production no abdominal pain no diarrhea Objective - Vital Signs Vital signs: Vital Signs Temp 98.7 F 03/18/23 08:00 Pulse 72 03/18/23 08:54 Resp 16 03/18/23 08:00 BP 147/80 03/18/23 08:00 Pulse Ox 95 03/18/23 08:43 FiO2 Intake & Output 03/17/23 03/18/23 03/18/23 18:59 06:59 18:59 Intake Total 198 Output Total 225 100 Balance -27 -100 Intake: Oral 198 Output: Urine 225 100 Other: Voiding Method Urinal Urinal Urinal # Voids 1 1 # Bowel Movements 1 1 1 - Exam GENERAL DESCRIPTION: An elderly male lying in bed in no distress RESPIRATORY SYSTEM: Unlabored breathing , decreased breath sounds at bases HEART: S1 S2 regular rate and rhythm , ABDOMEN: Soft , no tenderness EXTREMITIES: No edema feet - Labs CBC & Chem 7: 03/17/23 07:19 03/18/23 07:40 Labs: Abnormal Lab Results - Last 24 Hours (Table) 03/18/23 Range/Units 07:40 Chloride 108 H (98-107) mmol/L Creatinine 1.33 H (0.66-1.25) mg/dL Microbiology - Last 24 Hours (Table) 03/16/23 13:59 Blood Culture - Preliminary Blood 03/15/23 22:03 Urine Culture - Final Urine,Voided Assessment and Plan (1) Pneumonia Status: Acute Code(s): J18.9 - PNEUMONIA, UNSPECIFIED ORGANISM SNOMED Code(s): 199222412 (2) Sepsis Status: Acute Code(s): A41.9 - SEPSIS, UNSPECIFIED ORGANISM SNOMED Code(s): 89176850 Plan: 1patient presented to the outside facility with fever and weakness with initial concern for possible UTI in this patient who did have a features of sepsis with elevated white count fever patient also have a cough and has been complaining of coughing especially after eating concerning for possible aspiration pneumonia and will need to cover for the polymicrobial monty usually associated with aspiration pneumonia, patient also have elevated procalcitonin 2Patient did have blood culture done outside facility came back positive with gram-negative bacilli which has not been identified however did have multidrug resistant pattern sensitive to Zosyn and Invanz, blood cultures will be repeated and are negative so far 3-patient will get a midline and advise a 10 day course of IV Invanz 1 g daily to finish his course of therapy Dictation was produced using [employer] dictation software. please excuse any grammatical, word or spelling errors. Time with Patient: Less than 30
== END 2023-03-18 17:03 | disposition home health service (06) | DRG 871 ==
LOC: EC 12:40 → 3SCARD 14:51
PROVIDERS: ADMIT Hospitalist; ATTEND Hospitalist
PROC: 05HF33Z Insertion of Infusion Device into Left Cephalic Vein, Percutaneous Approach (ICD-10-PCS; principal; 2023-03-18 11:00)
DX: A41.9 Sepsis, unspecified organism (principal); I21.4 Non-ST elevation (NSTEMI) myocardial infarction; J96.01 Acute respiratory failure with hypoxia; J69.0 Pneumonitis due to inhalation of food and vomit; N17.9 Acute kidney failure, unspecified; J98.11 Atelectasis; I69.354 Hemiplegia and hemiparesis following cerebral infarction affecting left non-dominant side; N39.0 Urinary tract infection, site not specified; I50.32 Chronic diastolic (congestive) heart failure; I27.21 Secondary pulmonary arterial hypertension; J84.10 Pulmonary fibrosis, unspecified; I71.21 Aneurysm of the ascending aorta, without rupture; Z20.822 Contact with and (suspected) exposure to COVID-19; E78.5 Hyperlipidemia, unspecified; E86.0 Dehydration; I25.10 Atherosclerotic heart disease of native coronary artery without angina pectoris; I25.2 Old myocardial infarction; E66.9 Obesity, unspecified; Z68.30 Body mass index [BMI] 30.0-30.9, adult; Z79.01 Long term (current) use of anticoagulants; Z79.82 Long term (current) use of aspirin; Z79.52 Long term (current) use of systemic steroids; Z79.899 Other long term (current) drug therapy; Z95.1 Presence of aortocoronary bypass graft; Z87.891 Personal history of nicotine dependence; H35.30 Unspecified macular degeneration; I95.1 Orthostatic hypotension; I11.0 Hypertensive heart disease with heart failure; I48.0 Paroxysmal atrial fibrillation
CPT/HCPCS: 36410; 36415; 51798; 71045; 71275; 76937; 80048; 80053; 81001; 83605; 83735; 83880; 84100; 84145; 84484; 85025; 85379; 85610; 85730; 87040; 87086; 87636; 93005; 93306; 94640; 94760; 96361; 96365; 96375; 99285